=== PATIENT | male | born 1960 | race Caucasian/White ===

== ENCOUNTER 2016-05-14 19:48 | Outpatient (CLI) | payer BC ==
[~2016-05-14 19:48] MED LIST: ASPI-999 PO; ATOR20TA66 PO; PANT40TA3 PO; RAMI2.5C PO
--- OUTSIDE RECORDS SUMMARY | 2016-05-14 19:58 | XMS REPORT | Continuity of Care Document ---
Author Author [facility] Organization [facility] Address Unknown Phone Unavailable Care Team Providers Care Lockstitch Sleeve Maker Name Role Phone HAYDEE MORAES MD PCP Insurance Providers Payer Name Policy Number Subscriber Name Relationship [facility] [id number] Brigette Llanes Advance Directives Directive Response Recorded Date/Time Advance Directives No 01/21/16 5:25am Health Care Power of Waiter/Waitress [place] No 01/21/16 5:25am Organ Donor No 01/21/16 5:25am Problems Active Problems Medical Problem Onset Date Status Paroxysmal atrial fibrillation Unknown Acute Medications Current Home Medications Medication Dose Units Route Directions Days/Qty Instructions Start Date Ramipril 2.5 Mg 2.5 Mg Oral Daily 01/21/16 Atorvastatin Calcium 20 Mg 20 Mg Oral Daily 01/21/16 Pantoprazole Sodium 40 Mg 40 Mg Oral Daily 01/21/16 Aspirin 81 Mg 81 Mg Oral Daily 01/21/16 Social History Social History Problem Response Recorded Date/Time Recent Hopitalizations No 01/21/2016 5:25am Hospital Discharge Instructions No hospital discharge instructions. Plan of Care Discharge Date 03/20/16 6:25am Prescriptions See Medication Section Functional Status No functional status results. Allergies, Adverse Reactions, Alerts No known allergies. Immunizations No immunization records. Vital Signs No known vital signs results. Results No known relevant diagnostic tests, laboratory data and/or discharge summary. Procedures No known history of procedures. Encounters Encounter Location Arrival/Admit Date Discharge/Depart Date Attending Provider Departed Clinic [facility] 03/19/16 7:40pm 03/20/16 6: 25am Magy FREEMAN MD
== END 2016-05-15 06:10 | disposition home or self-care (01) ==
LOC: SLEEP 19:48
PROVIDERS: ATTEND Nurse Practitioner Family
DX: G47.33 Obstructive sleep apnea (adult) (pediatric) (principal); I48.91 Unspecified atrial fibrillation
CPT/HCPCS: 95811

== ENCOUNTER 2017-12-09 15:00 | Outpatient (RCR) | payer BC, OTHER ==
[~2017-12-09 15:00] MED LIST changes: -RAMI2.5C PO; +RAMI2.5C2 PO
== END 2017-12-30 | disposition home or self-care (01) ==
PROVIDERS: ATTEND Orthopaedic Surgery
DX: M23.612 Other spontaneous disruption of anterior cruciate ligament of left knee (principal)

== ENCOUNTER 2020-01-17 22:08 | Inpatient (IN) | payer BC, OTHER ==
[~2020-01-17] VITALS: Ht 167.7 cm; Wt 77.6 kg
[~2020-01-17 22:08] MED LIST changes: -PANT40TA3 PO; +PANT40TA52 PO
[2020-01-17] MEDS ORDERED: NS IV 1000 ML 1,000 ML IV SCH (23:15)
[2020-01-17 23:24] LABS: BASOPHILS % (AUTO) 0 % (0-10); EOSINOPHILS % (AUTO) 0 % (0-10); HEMATOCRIT 41 % (40-54); HEMOGLOBIN 13.6 g/dL (13.3-17.7); LYMPHOCYTES # (AUTO) 1.2 10^3/uL (1.0-4.0); LYMPHOCYTES % (AUTO) 12 % (12-44); MEAN CORPUSCULAR HEMOGLOBIN 29 pg (25-34); MEAN CORPUSCULAR HGB CONC 33 g/dL (32-36); MEAN CORPUSCULAR VOLUME 90 fL (80-99); MEAN PLATELET VOLUME 9.8 fL (9.0-12.2); MONOCYTES # (AUTO) 0.6 10^3/uL (0.0-1.0); MONOCYTES % (AUTO) 6 % (0-12); NEUTROPHILS # (AUTO) 8.3 10^3/uL (1.8-7.8); NEUTROPHILS % (AUTO) 81 % (42-75); PLATELET COUNT 291 10^3/uL (130-400); WHITE BLOOD COUNT 10.2 10^3/uL (4.3-11.0)
[2020-01-17 23:35] LABS: ALBUMIN 3.7 GM/DL (3.2-4.5); CHLORIDE 102 MMOL/L (98-107); POTASSIUM 4.1 MMOL/L (3.6-5.0); SODIUM 137 MMOL/L (135-145)
[2020-01-17 23:36] LABS: CALCIUM 9.6 MG/DL (8.5-10.1)
[2020-01-17 23:37] LABS: GLUCOSE 109 MG/DL (70-105)
[2020-01-17 23:38] LABS: TOTAL PROTEIN 8.3 GM/DL (6.4-8.2)
[2020-01-17 23:39] LABS: BILIRUBIN,TOTAL 1.1 MG/DL (0.1-1.0); CARBON DIOXIDE 19 MMOL/L (21-32)
[2020-01-17 23:41] LABS: ALKALINE PHOSPHATASE 66 U/L (40-136); CREATININE SERUM 1.56 MG/DL (0.60-1.30); FIBRIN DEGRADATION PRODUCTS 2.17 UG/ML (0.00-0.49); GFR ESTIMATED 46; INR 2.2 (0.8-1.4); PROTHROMBIN TIME PATIENT 24.8 SEC (12.2-14.7)
[2020-01-17 23:42] LABS: BUN/CREATININE RATIO 21
[2020-01-17 23:44] LABS: ALANINE AMINOTRANSFERASE 69 U/L (0-55); MAGNESIUM 2.2 MG/DL (1.6-2.4)
[2020-01-17 23:45] LABS: CREATINE KINASE 760 U/L (30-200)
[2020-01-17 23:47] LABS: ERYTHROCYTE SEDIMENTATION RATE 43 MM/HR (0-30)
--- NOTE | 2020-01-17 23:50 | ED Respiratory ---
General Chief Complaint: Respiratory Problems Stated Complaint: COVID +;LOW OXYGEN LEVELS Source: patient History of Present Illness Date Seen by Provider: Jan 17, 2020 Time Seen by Provider: 22:23 Initial Comments PT ARRIVES VIA POV FROM HOME STATES HE WAS SEEN AT [facility] 01/05/20 FOR "SINUS HEADACHE" AND WAS TESTED FOR COVID-19--CAME BACK POSITIVE. 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 HAS HISTORY OF MULTIPLE MYELOMA, DX IN 1996 AND HAD BONE MARROW TRANSPLANT 1997--CONSIDERED CURED. HAS NOT TAKEN ANYTHING FOR SYMPTOMS AT ANY TIME HAS NOT ATTEMPTED TO FOLLOW UP WITH ANYONE UNTIL TON. PCP: DR. MORAES IN [place] Allergies and Home Medications Allergies Coded Allergies: No Known Drug Allergies (Unverified , 01/21/16) Home Medications Aspirin 81 Mg Tab.chew, 81 MG PO DAILY, (Reported) Atorvastatin Calcium 20 Mg Tablet, 20 MG PO DAILY, (Reported) Pantoprazole Sodium 40 Mg Tablet.dr, 40 MG PO DAILY, (Reported) Ramipril 2.5 Mg Capsule, 2.5 MG PO DAILY, (Reported) Patient Home Medication List Home Medication List Reviewed: Yes Review of Systems Review of Systems Constitutional: see HPI, fever, malaise, weakness EENTM: no symptoms reported Respiratory: see HPI, cough, short of breath Cardiovascular: no symptoms reported; No chest pain Gastrointestinal: No abdominal pain, No diarrhea; loss of appetite; No nausea, No vomiting Genitourinary: no symptoms reported Musculoskeletal: no symptoms reported Skin: no symptoms reported Psychiatric/Neurological: See HPI, Headache Hematologic/Lymphatic: See HPI, Blood Clots Immunological/Allergic: see HPI Past Bkfvjbk-Ktzkax-Rimbob Hx Past Med/Social Hx: Reviewed and Corrections made Patient Social History Alcohol Use: Denies Use Recreational Drug Use: No Smoking Status: Never a Smoker Recent Hopitalizations: No Immunizations Up To Date Date of Pneumonia Vaccine: Dec 24, 2015 Date of Influenza Vaccine: Dec 24, 2015 Seasonal Allergies Seasonal Allergies: No Past Medical History Surgeries: Yes (BONE MARROW TRANSPLANT;VENA CAVA FILTER;) Pituitary, Vascular Surgery Respiratory: Yes (PNEUMONIA WHEN YOUNG) Pneumonia Cardiac: Yes (LEFT LEG DVT X 3; PAROXYSMAL A FIB) Atrial Fibrillation, Coronary Artery Disease, Deep Vein Thrombosis, Heart Attack, High Cholesterol, Hypertension Neurological: No Reproductive Disorders: No Genitourinary: No Gastrointestinal: Yes Abdominal Hernia, Gastroesophageal Reflux, Hiatal Hernia Musculoskeletal: No Endocrine: Yes (PITUITARY REMOVED) Pituitary Disease HEENT: No Cancer: Yes (MULTIPLE MYELOMA DX 1996; BONE MARROW TRANSPLANT 1997) Did You Recieve Any Treatments: Yes What Type of Treatment Did You: Other Psychosocial: No Integumentary: No Blood Disorders: No Family Medical History No Pertinent Family Hx Physical Exam Vital Signs - First Documented 01/17/20 22:35 Temp 36.8 Pulse 80 Resp 22 B/P (MAP) 135/89 (104) O2 Delivery Nasal Cannula O2 Flow Rate 3.00 Capillary Refill : Height: 5'8" Weight: 184lbs. oz. 83.059080mu; BMI Method:Stated General Appearance: WD/WN, other (MILDLY DYSPNEIC, BUT TALKS AT LENGTH ) HEENT: PERRL/EOMI, other (ORAL MUCOSA MOIST) Neck: normal inspection Respiratory: no accessory muscle use, decreased breath sounds (IN BASES), other (MILDLY DYSPNEIC) Cardiovascular: normal peripheral pulses, no edema, no gallop, no JVD, no murmur, tachycardia (MILD 100-110) Gastrointestinal: normal bowel sounds, non tender, soft, no organomegaly Extremities: normal range of motion, non-tender, normal inspection, no pedal edema, no calf tenderness, normal capillary refill Neurologic/Psychiatric: it technician II-XII nml as tested, no motor/sensory deficits, alert, normal mood/affect, oriented x 3 Skin: normal color, warm/dry; No rash Focused Exam Lactate Level 01/17/20 23:10: Lactic Acid Level 2.24*H Lactic Acid Level Laboratory Tests Test 01/17/20 23:10 Lactic Acid Level 2.24 MMOL/L (0.50-2.00) *H Progress/Results/Core Measures Suspected Sepsis SIRS Temperature: Pulse: Respiratory Rate: Laboratory Tests 01/17/20 23:10: White Blood Count 10.2 Blood Pressure / Mean: 01/17/20 23:10: Lactic Acid Level 2.24*H Laboratory Tests 01/17/20 23:10: Creatinine 1.56H, INR Comment 2.2H, Platelet Count 291, Total Bilirubin 1.1H Results/Orders Lab Results Laboratory Tests Test 01/17/20 00:50 01/17/20 23:10 Range/Units Blood Gas Puncture Site RIGHT RADIAL Blood Gas Patient Temperature 98.1 Arterial Blood pH 7.38 7.37-7.43 Arterial Blood Partial Pressure CO2 31 L 35-45 MMHG Arterial Blood Partial Pressure O2 85 79-93 MMHG Arterial Blood HCO3 18 L 23-27 MMOL/L Arterial Blood Total CO2 18.6 L 21.0-31.0 MMOL/L Arterial Blood Oxygen Saturation 96 94-100 % Arterial Blood Base Excess -6.6 L -2.5-2.5 MMOL/L Aramis Test YES-POS Blood Gas Ventilator Setting NO Blood Gas Inspired Oxygen 3L White Blood Count 10.2 4.3-11.0 10^3/uL Red Blood Count 4.62 4.30-5.52 10^6/uL Hemoglobin 13.6 13.3-17.7 g/dL Hematocrit 41 40-54 % Mean Corpuscular Volume 90 80-99 fL Mean Corpuscular Hemoglobin 29 25-34 pg Mean Corpuscular Hemoglobin Concent 33 32-36 g/dL Red Cell Distribution Width 15.9 H 10.0-14.5 % Platelet Count 291 130-400 10^3/uL Mean Platelet Volume 9.8 9.0-12.2 fL Immature Granulocyte % (Auto) 0 % Neutrophils (%) (Auto) 81 H 42-75 % Lymphocytes (%) (Auto) 12 12-44 % Monocytes (%) (Auto) 6 0-12 % Eosinophils (%) (Auto) 0 0-10 % Basophils (%) (Auto) 0 0-10 % Neutrophils # (Auto) 8.3 H 1.8-7.8 10^3/uL Lymphocytes # (Auto) 1.2 1.0-4.0 10^3/uL Monocytes # (Auto) 0.6 0.0-1.0 10^3/uL Eosinophils # (Auto) 0.0 0.0-0.3 10^3/uL Basophils # (Auto) 0.0 0.0-0.1 10^3/uL Immature Granulocyte # (Auto) 0.0 0.0-0.1 10^3/uL Erythrocyte Sedimentation Rate 43 H 0-30 MM/HR Prothrombin Time 24.8 H 12.2-14.7 SEC INR Comment 2.2 H 0.8-1.4 Activated Partial Thromboplast Time 60 H 24-35 SEC D-Dimer 2.17 H 0.00-0.49 UG/ML Sodium Level 137 135-145 MMOL/L Potassium Level 4.1 3.6-5.0 MMOL/L Chloride Level 102 98-107 MMOL/L Carbon Dioxide Level 19 L 21-32 MMOL/L Anion Gap 16 H 5-14 MMOL/L Blood Urea Nitrogen 32 H 7-18 MG/DL Creatinine 1.56 H 0.60-1.30 MG/DL Estimat Glomerular Filtration Rate 46 BUN/Creatinine Ratio 21 Glucose Level 109 H 70-105 MG/DL Lactic Acid Level 2.24 *H 0.50-2.00 MMOL/L Calcium Level 9.6 8.5-10.1 MG/DL Corrected Calcium 9.8 8.5-10.1 MG/DL Magnesium Level 2.2 1.6-2.4 MG/DL Total Bilirubin 1.1 H 0.1-1.0 MG/DL Aspartate Amino Transf (AST/SGOT) 58 H 5-34 U/L Alanine Aminotransferase (ALT/SGPT) 69 H 0-55 U/L Alkaline Phosphatase 66 40-136 U/L Total Creatine Kinase 760 H 30-200 U/L Creatine Kinase MB 1.2 <6.6 NG/ML Myoglobin 294.3 H 10.0-92.0 NG/ML Troponin I < 0.028 <0.028 NG/ML C-Reactive Protein High Sensitivity 23.19 H 0.00-0.50 MG/DL B-Type Natriuretic Peptide 12.2 <100.0 PG/ML Total Protein 8.3 H 6.4-8.2 GM/DL Albumin 3.7 3.2-4.5 GM/DL Procalcitonin 0.36 H <0.10 NG/ML My Orders Orders - CAMMY,KATHY K DO Ed Iv/Invasive Line Start (01/17/20 22:24) Ekg Tracing (01/17/20 22:24) O2 (01/17/20:24) Monitor-Rhythm Ecg Trace Only (01/17/20:24) Chest 1 View, Ap/Pa Only (01/17/20 22:24) Arterial Blood Gas (01/17/20:24) BNP (01/17/20:24) Cbc With Automated Diff (01/17/20:24) Comprehensive Metabolic Panel (01/17/20:24) Creatine Kinase (01/17/20:24) Creatine Kinase Mb (01/17/20:24) Hs C Reactive Protein (01/17/20:) Fibrin Degradation Products (01/17/20:24) Lactic Acid Analyzer (01/17/20:24) Magnesium (01/17/20:24) Procalcitonin (Pct) (01/17/20:24) Protime With Inr (01/17/20:24) Partial Thromboplastin Time (01/17/20:24) Ua Culture If Indicated (01/17/20:24) Blood Culture (01/17/20:24) Erythrocyte Sedimentation Rate (01/17/20:24) Myoglobin Serum (01/17/20 22:24) Troponin I (01/17/20 22:24) Ed Iv/Invasive Line Start (01/17/20 23:15) Ns Iv 1000 Ml (Sodium Chloride 0.9%) (01/17/20 23:15) Covid-19 External Lab Results (01/17/20 23:53) Isolation Central Supply Req (01/17/20 23:53) Arterial Blood Gas (01/17/20 00:50) Vital Signs/I&O 01/17/20 01/17/20 22:35 22:35 Temp 36.8 Pulse 80 Resp 22 B/P (MAP) 135/89 (104) O2 Delivery Nasal Cannula Room Air O2 Flow Rate 3.00 Capillary Refill : Progress Note : Progress Note PLACED IN ISOLATION ROOM, PPE WORN AT ALL TIMES INITIAL O2 SATS IN MID 80'S --PLACED ON O2 AT 3L/NC--UP TO 98% NO DETERIORATION IN PT'S CONDITION DURING ER STAY CREATININE AND GFR ELEVATED AT THIS TIME, SO UNABLE TO DO CT CHEST ANGIOGRAM AT THIS TIME. WILL TREAT WITH LOVENOX, PT HAS NOT TAKEN HIS XARELTO FOR A FEW DAYS. GIVEN ANTIBIOTICS AND DEXAMETHASONE WELL ECG Initial ECG Impression Date: Jan 17, 2020 Initial ECG Impression Time: 23:04 Initial ECG Rate: 93 Initial ECG Rhythm: Normal Sinus Comment INFERIOR Q WAVES Diagnostic Imaging Comments CXR--BILATERAL INFILTRATES, PENDING RADIOLOGIST REVIEW Departure Communication (Admissions) 0004--SPOKE WITH DR. BAR, HOSPITALIST, ACCEPTS PT FOR ADMIT. ORDERS NOTED. Impression Primary Impression: Pneumonia due to COVID-19 virus Additional Impressions: Hypoxia History of recurrent deep vein thrombosis (DVT) HX OF PAROXYSMAL ATRIAL FIBRILLATION Hx of multiple myeloma S/P bone marrow transplant DEHYDRATION WITH RENAL INSUFFIENCY Disposition: ADMITTED INPATIENT Condition: Improved Admissions Decision to Admit Reason: Admit from ER (General) Decision to Admit/Date: Jan 18, 2020 Time/Decision to Admit Time: 00:05 Departure-Patient Inst. Referrals: BHAVNA VAZQUEZ MD (PCP) Primary Care Physician KATHY CHAWLA DO Jan 17, 2020 23:50
[2020-01-17 23:52] LABS: CREATINE KINASE MB 1.2 NG/ML (<6.6)
[2020-01-18] VITALS (17 sets, daily range): BP systolic 101–140; BP diastolic 55–95
[2020-01-18 00:03] LABS: ABG BASE EXCESS -6.6 MMOL/L (-2.5-2.5); ABG OXYGEN SATURATION 96 % (94-100); ABG PCO2 31 MMHG (35-45); ABG PH 7.38 (7.37-7.43); ABG PO2 85 MMHG (79-93); ABG TCO2 18.6 MMOL/L (21.0-31.0); ALLENS TEST YES-POS; INSPIRED O2 3L; PATIENT TEMP 98.1; VENTILATOR NO
[2020-01-18] MEDS ORDERED: CEFEPIME INJECTION 2,000 MG in WATER (STERILE) FOR INJECTION 20 ML IV ONE (00:15)
[2020-01-18] MEDS ORDERED: ENOXAPARIN 100 MG/1 ML (LOVENOX) SYR SC ONE (00:15)
[2020-01-18] MEDS ORDERED: VANCOMYCIN INJECTION 1,000 MG in NS (IVPB) 250 ML IV ONE (00:15)
[2020-01-18] MEDS ORDERED: NS IV 1000 ML 1,000 ML IV SCH (00:32)
[2020-01-18] MEDS ORDERED: VANCOMYCIN INJECTION 750 MG in NS (IVPB) 250 ML IV ONE (01:15)
[2020-01-18] MEDS ORDERED: D5 1/2 NS W/KCL 20 MEQ/L 1,000 ML IV ONE (01:52)
[2020-01-18] MEDS ORDERED: NS (IVPB) 250 ML ONE (01:54)
[2020-01-18] MEDS ORDERED: AZITHROMYCIN INJECTION 500 MG/5 ML VIAL ONE (01:54)
[2020-01-18] MEDS ORDERED: ACETAMINOPHEN 500 MG TAB (TYLENOL) PO PRN (02:15)
[2020-01-18] MEDS: D5 1/2 NS W/KCL 20 MEQ/L 1,000 ML IV SCH ×4 (02:42→22:56)
[2020-01-18] MEDS: AZITHROMYCIN 500 MG/NS 250 ML IVPB IV SCH ×2 (02:42)
[2020-01-18] MEDS ORDERED: RT-ALBUTEROL INHALER HFA (VENTOLIN HFA) 18 GM IH PRN (02:45)
[2020-01-18 03:08] LABS: BASOPHILS % (AUTO) 0 % (0-10); EOSINOPHILS # (AUTO) 0.1 10^3/uL (0.0-0.3); EOSINOPHILS % (AUTO) 1 % (0-10); HEMATOCRIT 37 % (40-54); HEMOGLOBIN 11.4 g/dL (13.3-17.7); LYMPHOCYTES # (AUTO) 1.3 10^3/uL (1.0-4.0); LYMPHOCYTES % (AUTO) 13 % (12-44); MEAN CORPUSCULAR HEMOGLOBIN 29 pg (25-34); MEAN CORPUSCULAR HGB CONC 31 g/dL (32-36); MEAN CORPUSCULAR VOLUME 93 fL (80-99); MEAN PLATELET VOLUME 10.2 fL (9.0-12.2); MONOCYTES # (AUTO) 0.7 10^3/uL (0.0-1.0); MONOCYTES % (AUTO) 8 % (0-12); NEUTROPHILS # (AUTO) 7.6 10^3/uL (1.8-7.8); NEUTROPHILS % (AUTO) 78 % (42-75); PLATELET COUNT 242 10^3/uL (130-400); WHITE BLOOD COUNT 9.7 10^3/uL (4.3-11.0)
[2020-01-18 03:12] LABS: POTASSIUM 4.3 MMOL/L (3.6-5.0)
[2020-01-18 03:13] LABS: CALCIUM 8.2 MG/DL (8.5-10.1)
[2020-01-18 03:15] LABS: TOTAL PROTEIN 6.7 GM/DL (6.4-8.2)
[2020-01-18 03:16] LABS: BILIRUBIN,TOTAL 0.8 MG/DL (0.1-1.0)
[2020-01-18 03:18] LABS: CREATININE SERUM 1.35 MG/DL (0.60-1.30); PHOSPHORUS 2.9 MG/DL (2.3-4.7)
[2020-01-18 03:21] LABS: MAGNESIUM 1.9 MG/DL (1.6-2.4)
--- NOTE | 2020-01-18 04:42 | Pulmonary Consultation ---
History of Present Illness History of Present Illness Date Seen by Provider: Jan 18, 2020 Time Seen by Provider: 04:37 Date of Admission Allergies and Home Medications Allergies Coded Allergies: No Known Drug Allergies (Unverified , 01/21/16) Home Medications Atorvastatin Calcium 20 Mg Tablet, 20 MG PO DAILY, (Reported) Cholecalciferol (Vitamin D3) 125 Mcg Tablet, 125 MCG PO DAILY, (Reported) Pantoprazole Sodium 40 Mg Tablet.dr, 40 MG PO DAILY, (Reported) Ramipril 2.5 Mg Capsule, 2.5 MG PO DAILY, (Reported) Rivaroxaban 20 Mg Tablet, 20 MG PO DAILY, (Reported) Past Dlkjmoe-Hnopfj-Epirmz Hx Past Med/Social Hx: Reviewed and Corrections made Patient Social History Alcohol Use: Denies Use Recreational Drug Use: No Smoking Status: Never a Smoker Recent Foreign Travel: No Contact w/Someone Who Travel: No Recent Infectious Disease Expo: No Recent Hopitalizations: No Physical Abuse: No Sexual Abuse: No Mistreated: No Fear: No Immunizations Up To Date Date of Pneumonia Vaccine: Apr 13, 2017 Date of Influenza Vaccine: Dec 24, 2015 Seasonal Allergies Seasonal Allergies: No Past Medical History Surgeries: Yes (BONE MARROW TRANSPLANT;VENA CAVA FILTER;) Pituitary, Vascular Surgery Respiratory: Yes (PNEUMONIA WHEN YOUNG) Pneumonia Cardiac: Yes (LEFT LEG DVT X 3; PAROXYSMAL A FIB) Atrial Fibrillation, Coronary Artery Disease, Deep Vein Thrombosis, Heart Attack, High Cholesterol, Hypertension Neurological: No Reproductive Disorders: No Genitourinary: No Gastrointestinal: Yes Abdominal Hernia, Gastroesophageal Reflux, Hiatal Hernia Musculoskeletal: No Endocrine: Yes (PITUITARY REMOVED) Pituitary Disease HEENT: No Cancer: Yes (MULTIPLE MYELOMA DX 1996; BONE MARROW TRANSPLANT 1997) Did You Recieve Any Treatments: Yes What Type of Treatment Did You: Other Psychosocial: No Integumentary: No Blood Disorders: No Family Medical History No Pertinent Family Hx Review of Systems Time Seen by Provider: 06:33 Sepsis Event Evaluation Height, Weight, BMI Height: 5'8" Weight: 184lbs. oz. 83.619148rt; 29.00 BMI Method:Stated Exam Exam Vital Signs Date Time Temp Pulse Resp B/P (MAP) Pulse Ox O2 Delivery O2 Flow Rate FiO2 01/18/20 04:00 95 High Flow N/C 12.00 01/18/20 02:43 High Flow N/C 15.00 01/18/20 02:30 83 95 01/18/20 02:19 36.1 83 34 139/81 (100) 94 Non Rebreather 15.00 01/18/20 01:38 36.8 75 16 125/75 (104) 95 Nasal Cannula 3.00 01/17/20 22:35 36.8 80 22 135/89 (104) Room Air 01/17/20 22:35 Nasal Cannula 3.00 I & O 01/18/20 07:00 Intake Total 2520 ml Balance 2520 ml Height & Weight Height: 5'8" Weight: 184lbs. oz. 83.649215xj; 29.00 BMI Method:Stated General Appearance: No Apparent Distress, WD/WN HEENT: PERRL/EOMI, Normal ENT Inspection, Pharynx Normal Capillary Refill: Less Than 3 Seconds Gastrointestinal: normal bowel sounds, non tender, soft, no organomegaly Results Lab Laboratory Tests 01/17/20 23:10 01/18/20 01:25 Assessment/Plan Assessment/Plan Acute COVID 19 Pneumonia -Start Vapotherm -BiPAP HS and PRN -Dx 01/04 - 14 days from dx to admission -Pt is outside of window for Remdisiever -Give Convalescent plasma -Start Decadron Acute secondary PNA -Check urine legionella and strep ag -MRSA swab -Check Influenza -Continue Cefepime and azithromycin -Kay cultures -Currently IVF are at 150 with D5NS Hyperkalemia with worsening renal failure -Give a liter bolus of NS over 2hrs -give 1amp of bicarb Metabolic lactic acidosis -Resolved with IVF Hx of DEISY -Uses CPAP with 2 liters of oxygen at home DVT/GI ppx -Theraputic dose Lovenox and protonix -Pt has hx of DVT with venacava filter. GEOFF CURRIE DO Jan 18, 2020 04:42
[2020-01-18] MEDS: CEFEPIME 1,000 MG/SWFI 10 ML IV PUSH IV SCH ×8 (06:46→22:55)
[2020-01-18] MEDS ORDERED: FLU QUADRIvalent (3YOA+) 60 mcg/0.5 ml 2020-21 (AFLURIA) IM ONE (07:00)
--- NOTE | 2020-01-18 07:38 | Diagnostic Imaging Report ---
INDICATION: Dyspnea. Comparison with 01/21/2016. FINDING: Consolidated bilateral lower lobe alveolar infiltrates have developed. Small pleural effusion. Heart is upper limits of normal. The upper lungs are clear with no evidence of pulmonary edema. No bony abnormalities. IMPRESSION: Findings are consistent with consolidated pneumonia developing in the lower lobes bilaterally. Dictated by: Dictated on workstation # [id number]
[2020-01-18 08:19] LABS: BILIRUBIN,URINE NEGATIVE (NEGATIVE); CLARITY,URINE SL CLOUDY; COLOR,URINE YELLOW; GLUCOSE, URINE (UA) NEGATIVE (NEGATIVE); KETONES,URINE NEGATIVE (NEGATIVE); LEUKOCYTE ESTERASE ,URINE NEGATIVE (NEGATIVE); NITRITE,URINE NEGATIVE (NEGATIVE); PROTEIN,URINE TRACE (NEGATIVE)
[2020-01-18 08:38] LABS: BACTERIA,URINE TRACE /HPF; GRANULAR CASTS,URINE 0-2 /LPF; RBC,URINE 0-2 /HPF; WBC,URINE 0-2 /HPF
[2020-01-18] MEDS: dexAMETHasone 6 MG TAB (DECADRON) PO SCH (09:11)
[2020-01-18] MEDS: PANTOPRAZOLE 40 MG (PROTONIX) VIAL IV SCH (09:11)
[2020-01-18] MEDS: RT-ALBUTEROL INHALER HFA (VENTOLIN HFA) 18 GM IH SCH ×4 (10:29→21:05)
--- NOTE | 2020-01-18 10:41 | History & Physical-Hospitalist ---
History of Present Illness HPI/Chief Complaint patient is a 59-year-old male past medical history of hypertension hyperlipidemia who presented to the emergency department due to shortness of breath. He states he was exposed to COVID at work and subsequently was tested but was asymptomatic. He was found to be positive for COVID on 924. Roughly one week later he developed symptoms on 01/10. he was quite hypoxic and required a nonrebreather to maintain oxygen saturations. He is been admitted to the ICU. This morning he states that he is feeling better. He did have some nausea overnight but denies any vomiting, loss of taste or smell, or diarrhea. Source: patient Date Seen 01/18/20 Time Seen by a Provider: 10:31 Attending Physician Bibi Bueno MD PCP No,Local Physician Referring Physician Date of Admission Jan 18, 2020 at 00:05 Home Medications & Allergies Home Medications Reviewed patient Home Medication Reconciliation performed by pharmacy medication reconciliations generation technician and/or nursing. Patients Allergies have been reviewed. Allergies Allergies Coded Allergies No Known Drug Allergies (Bptrwbsnlp41/10/16) Past Ibjubhe-Btgbgq-Fodhgz Hx Past Med/Social Hx: Reviewed and Corrections made Patient Social History Alcohol Use: Denies Use Recreational Drug Use: No Smoking Status: Never a Smoker Recent Foreign Travel: No Contact w/other who traveled: No Recent Hopitalizations: No Recent Infectious Disease Expo: No Immunizations Up To Date Date of Pneumonia Vaccine: Apr 13, 2017 Date of Influenza Vaccine: Dec 24, 2015 Seasonal Allergies Seasonal Allergies: No Past Medical History Surgeries: Pituitary, Vascular Surgery Cardiac: Atrial Fibrillation, Coronary Artery Disease, Deep Vein Thrombosis, Heart Attack, High Cholesterol, Hypertension Reproductive: No Gastrointestinal: Abdominal Hernia, Gastroesophageal Reflux, Hiatal Hernia Endocrine: Pituitary Disease Did You Recieve Any Treatments: Yes What Type of Treatment Did You: Other History of Blood Disorders: No Family History No Pertinent Family Hx Review of Systems Constitutional: fever, malaise EENTM: no symptoms reported Respiratory: cough; No phlegm; short of breath Cardiovascular: No chest pain; edema (chronic); No palpitations Gastrointestinal: No abdominal pain, No diarrhea; nausea; No vomiting Genitourinary: No decreased output, No dysuria Musculoskeletal: no symptoms reported Skin: no symptoms reported Psychiatric/Neurological: No Symptoms Reported Physical Exam Physical Exam Vital Signs Vital Signs - First Documented 10/09/3001/18/20 01/18/20 22:35 01:38 12:00 Temp 36.8 Pulse 80 Resp 22 B/P (MAP) 135/89 (104) Pulse Ox 95 O2 Delivery Nasal Cannula O2 Flow Rate 3.00 FiO2 85 Capillary Refill : Greater Than 3 Seconds Height, Weight, BMI Height: 5'8" Weight: 184lbs. oz. 83.886646uh; 29.00 BMI Method:Stated General Appearance: No Apparent Distress, WD/WN HEENT: PERRL/EOMI, Moist Mucous Membranes; No Scleral Icterus (L), No Scleral Icterus (R) Neck: Normal Inspection, Supple Respiratory: Decreased Breath Sounds (bases); No Rhonci, No Wheezing; Other (on 12lpm HFNC) Cardiovascular: Regular Rate, Rhythm, No JVD, No Murmur, Normal Peripheral Pulses Gastrointestinal: Normal Bowel Sounds, Non Tender, Soft Extremity: No Calf Tenderness, No Pedal Edema; No Swelling Neurologic/Psychiatric: Alert, Oriented x3, Normal Mood/Affect Skin: Normal Color, Warm/Dry Results Results/Procedures Labs Laboratory Tests 01/17/20 23:10 01/18/20 01:25 Patient resulted labs reviewed. Imaging: Reviewed Imaging Report Imaging [facility] [place] NAME: THIEN LLANES [facility] REC#: [id number] PT STATUS: ADM IN : 1960 PHYSICIAN: KATHY CHAWLA DO ADMIT DATE: 01/18/20/ICU Signed Date of Exam:01/17/20 CHEST 1 VIEW, AP/PA ONLY INDICATION: Dyspnea. Comparison with 01/21/2016. FINDING: Consolidated bilateral lower lobe alveolar infiltrates have developed. Small pleural effusion. Heart is upper limits of normal. The upper lungs are clear with no evidence of pulmonary edema. No bony abnormalities. IMPRESSION: Findings are consistent with consolidated pneumonia developing in the lower lobes bilaterally. Dictated by: Dictated on workstation # [id number] Dict: 01/18/20 0723 Trans: 01/18/20 1007 [facility] [id number] Interpreted by: MARIAN RICHARDS MD Electronically signed by: MARIAN RICHARDS MD 01/18/20 1007 Assessment/Plan Admission Diagnosis Acute hypoxic respiratory failure due to COVID19 Admission Status: Inpatient Order (span 2 midnights) Reason for Inpatient Admission: see below Assessment and Plan Acute hypoxic respiratory failure COVID19 Bilateral Pneumonia Outside of window for Remdesivir as diagnosed on 01/04 Convalescent plasma ordered per Dr Diandra Penaloza ordered Continue Vanc. Cefepime, and Azithro Hope to deescalate tomorrow MAT protocol Lovenox therapuetic dosing for now Plan to switch to vapotherm HTN HLD BP well controlled, trend for now Diagnosis/Problems Diagnosis/Problems (1) Acute respiratory failure Status: Acute Qualifiers: Respiratory failure complication: hypoxia Qualified Codes: J96.01 - Acute respiratory failure with hypoxia (2) Pneumonia due to COVID-19 virus Status: Acute (3) History of recurrent deep vein thrombosis (DVT) Status: Acute (4) Paroxysmal atrial fibrillation Status: Acute (5) S/P bone marrow transplant Status: Acute (6) Hx of multiple myeloma Status: Acute (7) Chronic anticoagulation Clinical Quality Measures DVT/VTE Risk/Contraindication: Risk Factor Score Per Nursin RFS Level Per Nursing on Admit: 4+=Very High YANG CARMEN MD Jan 18, 2020 10:41
[2020-01-18] MEDS ORDERED: CALC-250 PO (10:58)
[2020-01-18] MEDS ORDERED: RIVA20TA2 PO (10:58)
--- NOTE | 2020-01-18 10:58 | NUR ---
I WAS UNABLE TO SPEAK WIT THE PT AT THIS TIME, I DID CALL PT'S SANDRA AND WENT THRU THE EXT MED HISTORY TO COMPLETE THE MED REC SANDRA WAS ABLE TO NAME ALL THE PTS MEDICATIONS WELL WHEN/HOW HE TAKES EACH ON 01-05-2020 PT FILLED DEXAMETHASONE 6MG #10/10DS AND DOXYCYCLINE 100MG #20/10DS BUT ACCORDING TO SANDRA THE PT HAS COMPLETED BOTH THESE THERAPIES OTC MEDS; VIT D
[2020-01-18] MEDS: ENOXAPARIN 100 MG/1 ML (LOVENOX) SYR SC SCH ×2 (12:06→22:55)
[2020-01-18] MEDS: VANCOMYCIN 1250 MG/NS 250 ML IVPB IV SCH ×4 (13:30→22:56)
[2020-01-18] MEDS ORDERED: VANCOMYCIN INJECTION 1,750 MG in NS IV 500 ML 500 ML IV SCH (20:00)
[2020-01-19] VITALS (18 sets, daily range): BP systolic 92–144; BP diastolic 49–83
[2020-01-19] MEDS: AZITHROMYCIN 500 MG/NS 250 ML IVPB IV SCH ×2 (02:53)
[2020-01-19] MEDS ORDERED: ONDANSETRON 4 MG/2 ML (SDV) Z0FRAN ONE (03:48)
[2020-01-19] MEDS: ONDANSETRON 4 MG/2 ML (SDV) Z0FRAN IVP PRN (03:53)
[2020-01-19] MEDS: CEFEPIME 1,000 MG/SWFI 10 ML IV PUSH IV SCH ×8 (04:03→23:24)
[2020-01-19] MEDS: D5 1/2 NS W/KCL 20 MEQ/L 1,000 ML IV SCH (04:24)
[2020-01-19 05:06] LABS: BASOPHILS % (AUTO) 0 % (0-10); EOSINOPHILS % (AUTO) 0 % (0-10); HEMATOCRIT 36 % (40-54); HEMOGLOBIN 11.4 g/dL (13.3-17.7); LYMPHOCYTES # (AUTO) 0.5 10^3/uL (1.0-4.0); LYMPHOCYTES % (AUTO) 4 % (12-44); MEAN CORPUSCULAR HEMOGLOBIN 29 pg (25-34); MEAN CORPUSCULAR HGB CONC 32 g/dL (32-36); MEAN CORPUSCULAR VOLUME 91 fL (80-99); MEAN PLATELET VOLUME 10.4 fL (9.0-12.2); MONOCYTES # (AUTO) 0.7 10^3/uL (0.0-1.0); MONOCYTES % (AUTO) 6 % (0-12); NEUTROPHILS % (AUTO) 90 % (42-75); PLATELET COUNT 293 10^3/uL (130-400); WHITE BLOOD COUNT 12.2 10^3/uL (4.3-11.0)
[2020-01-19 05:17] LABS: CHLORIDE 113 MMOL/L (98-107); POTASSIUM 4.8 MMOL/L (3.6-5.0); SODIUM 140 MMOL/L (135-145)
[2020-01-19 05:18] LABS: CALCIUM 8.4 MG/DL (8.5-10.1)
[2020-01-19 05:19] LABS: GLUCOSE 169 MG/DL (70-105)
[2020-01-19 05:20] LABS: CARBON DIOXIDE 16 MMOL/L (21-32)
[2020-01-19 05:22] LABS: PHOSPHORUS 2.4 MG/DL (2.3-4.7)
[2020-01-19 05:23] LABS: CREATININE SERUM 1.17 MG/DL (0.60-1.30); GFR ESTIMATED > 60
[2020-01-19 05:24] LABS: BUN/CREATININE RATIO 20
[2020-01-19 05:58] LABS: ATYPICAL LYMPHOCYTES 1 %; BAND NEUTROPHILS 1 %; BURR CELLS MODERATE; LYMPHOCYTES % (MANUAL) 2 %; MONOCYTES % (MANUAL) 4 %; NEUTROPHILS % (MANUAL) 92 %
[2020-01-19] MEDS: RT-ALBUTEROL INHALER HFA (VENTOLIN HFA) 18 GM IH SCH ×4 (07:32→19:26)
[2020-01-19] MEDS: dexAMETHasone 6 MG TAB (DECADRON) PO SCH (09:26)
[2020-01-19] MEDS: PANTOPRAZOLE 40 MG (PROTONIX) VIAL IV SCH (09:26)
--- NOTE | 2020-01-19 09:48 | Progress Note - Hospitalist ---
Subjective HPI/CC On Admission Date Seen by Provider: Jan 19, 2020 Time Seen by Provider: 09:41 patient is a 59-year-old male past medical history of hypertension hyperlipidemia who presented to the emergency department due to shortness of breath. He states he was exposed to COVID at work and subsequently was tested but was asymptomatic. He was found to be positive for COVID on . Roughly one week later he developed symptoms on 01/10. he was quite hypoxic and required a nonrebreather to maintain oxygen saturations. He is been admitted to the ICU. This morning he states that he is feeling better. He did have some nausea overnight but denies any vomiting, loss of taste or smell, or diarrhea. Subjective/Events-last exam Pt reports persistent SOB. Did not tolerate BiPAP overnight. On Vapotherm. Discussed Remdesvir and questionable candidacy for it given difference between diagnosis and symptom onset. He declined as he thinks it would be "pointless." Focused Exam Lactate Level 01/17/20 23:10: Lactic Acid Level 2.24*H 01/18/20 01:25: Lactic Acid Level 0.99 Objective Exam Vital Signs Vital Signs Date Time Temp Pulse Resp B/P (MAP) Pulse Ox O2 Delivery O2 Flow Rate FiO2 01/19/20 09:00 64 92/49 (63) 94 Vapotherm 35.00 90.00 01/19/20 07:35 90 01/19/20 06:00 23 01/19/20 02:57 35.8 Capillary Refill : Greater Than 3 Seconds General Appearance: No Apparent Distress, WD/WN Respiratory: No Accessory Muscle Use, Rhonci, Other (on Vapotherm) Cardiovascular: Regular Rate, Rhythm, No Murmur Gastrointestinal: Normal Bowel Sounds, Non Tender, Soft Neurologic/Psychiatric: Alert, Oriented x3 Results/Procedures Lab Laboratory Tests 01/19/20 04:35 Patient resulted labs reviewed. Imaging: Reviewed Imaging Report Assessment/Plan Assessment and Plan Assess & Plan/Chief Complaint Acute hypoxic respiratory failure COVID19 Bilateral Pneumonia Outside of window for Remdesivir as diagnosed on 01/04 and patient declines Convalescent plasma ordered and pending Decadron Continue Cefepime, and Azithro, MRSA negative DC Vanc MAT protocol Lovenox therapuetic dosing for now Continue Vapotherm HTN HLD BP well controlled, trend for now History of recurrent VTE Continue home anticoagulation DVT ppx: Lovenox Diagnosis/Problems Diagnosis/Problems (1) Acute respiratory failure Status: Acute Qualifiers: Respiratory failure complication: hypoxia Qualified Codes: J96.01 - Acute respiratory failure with hypoxia (2) Pneumonia due to COVID-19 virus Status: Acute (3) History of recurrent deep vein thrombosis (DVT) Status: Acute (4) Paroxysmal atrial fibrillation Status: Acute (5) S/P bone marrow transplant Status: Acute (6) Hx of multiple myeloma Status: Acute (7) Chronic anticoagulation Clinical Quality Measures DVT/VTE Risk/Contraindication: Risk Factor Score Per Nursin RFS Level Per Nursing on Admit: 4+=Very High YANG CARMEN MD Jan 19, 2020 09:48
[2020-01-19] MEDS ORDERED: FUROSEMIDE 40 MG/4 ML INJ (LASIX) IVP NR (12:45)
[2020-01-19] MEDS: RIVAROXABAN 20 MG TABLET (XARELTO) PO SCH (13:30)
[2020-01-19] MEDS ORDERED: ALPRAZolam 0.5 MG (XANAX) TAB PO PRN (19:30)
[2020-01-19] MEDS ORDERED: LACTATED RINGERS 1,000 ML IV ONE (19:31)
[2020-01-19] MEDS ORDERED: NS IV 500 ML 500 ML ONE (19:48)
[2020-01-19] MEDS: LACTATED RINGERS 1,000 ML IV SCH ×2 (22:24→23:24)
[2020-01-19] MEDS ORDERED: NS IV 500 ML 500 ML IV ONE (22:30)
[2020-01-20] VITALS (29 sets, daily range): BP systolic 119–158; BP diastolic 70–99
[2020-01-20] MEDS: AZITHROMYCIN 500 MG/NS 250 ML IVPB IV SCH ×2 (01:52)
[2020-01-20] MEDS: CEFEPIME 1,000 MG/SWFI 10 ML IV PUSH IV SCH ×6 (05:37→18:30)
[2020-01-20 05:58] LABS: BASOPHILS % (AUTO) 0 % (0-10); EOSINOPHILS % (AUTO) 0 % (0-10); HEMATOCRIT 31 % (40-54); HEMOGLOBIN 10.5 g/dL (13.3-17.7); LYMPHOCYTES # (AUTO) 0.5 10^3/uL (1.0-4.0); LYMPHOCYTES % (AUTO) 4 % (12-44); MEAN CORPUSCULAR HEMOGLOBIN 29 pg (25-34); MEAN CORPUSCULAR HGB CONC 33 g/dL (32-36); MEAN CORPUSCULAR VOLUME 88 fL (80-99); MEAN PLATELET VOLUME 10.5 fL (9.0-12.2); MONOCYTES # (AUTO) 0.6 10^3/uL (0.0-1.0); MONOCYTES % (AUTO) 4 % (0-12); NEUTROPHILS # (AUTO) 12.1 10^3/uL (1.8-7.8); NEUTROPHILS % (AUTO) 92 % (42-75); PLATELET COUNT 332 10^3/uL (130-400); WHITE BLOOD COUNT 13.3 10^3/uL (4.3-11.0)
[2020-01-20 06:14] LABS: CHLORIDE 111 MMOL/L (98-107); FIBRIN DEGRADATION PRODUCTS 1.19 UG/ML (0.00-0.49); INR 1.5 (0.8-1.4); POTASSIUM 4.9 MMOL/L (3.6-5.0); PROTHROMBIN TIME PATIENT 18.5 SEC (12.2-14.7)
[2020-01-20 06:15] LABS: SODIUM 139 MMOL/L (135-145)
[2020-01-20 06:16] LABS: CALCIUM 8.6 MG/DL (8.5-10.1); GLUCOSE 145 MG/DL (70-105)
[2020-01-20 06:18] LABS: CARBON DIOXIDE 18 MMOL/L (21-32)
[2020-01-20 06:20] LABS: CREATININE SERUM 1.16 MG/DL (0.60-1.30); GFR ESTIMATED > 60; PHOSPHORUS 3.8 MG/DL (2.3-4.7)
[2020-01-20 06:21] LABS: BUN/CREATININE RATIO 22
[2020-01-20 06:23] LABS: MAGNESIUM 1.9 MG/DL (1.6-2.4)
[2020-01-20] MEDS: VITAMIN D3 125 MCG (5,000 UNITS) CAPSULE PO SCH (09:19)
[2020-01-20] MEDS: RIVAROXABAN 20 MG TABLET (XARELTO) PO SCH (09:19)
[2020-01-20] MEDS: dexAMETHasone 6 MG TAB (DECADRON) PO SCH (09:19)
[2020-01-20] MEDS: PANTOPRAZOLE 40 MG (PROTONIX) TAB PO SCH (09:19)
[2020-01-20] MEDS: RT-ALBUTEROL INHALER HFA (VENTOLIN HFA) 18 GM IH SCH ×4 (09:36→19:46)
--- NOTE | 2020-01-20 09:44 | Progress Note - Hospitalist ---
Subjective HPI/CC On Admission Date Seen by Provider: Jan 20, 2020 Time Seen by Provider: 09:38 patient is a 59-year-old male past medical history of hypertension hyperlipidemia who presented to the emergency department due to shortness of breath. He states he was exposed to COVID at work and subsequently was tested but was asymptomatic. He was found to be positive for COVID on . Roughly one week later he developed symptoms on 01/10. he was quite hypoxic and required a nonrebreather to maintain oxygen saturations. He is been admitted to the ICU. This morning he states that he is feeling better. He did have some nausea overnight but denies any vomiting, loss of taste or smell, or diarrhea. Subjective/Events-last exam Pt reports "doing bad." Was just up to the toilet and walked back to bed. Sats dropped to 79 while I was at bed side. Pt assisted back to bed by REJI Her and slowly recovered to sats in the 90s. Apparently he had taken his BiPAP off on his own to eat breakfast this morning and sats dropped very low with that too. He was advised this is very dangerous to do without supervision and switching to Vapotherm. Focused Exam Lactate Level 01/17/20 23:10: Lactic Acid Level 2.24*H 01/18/20 01:25: Lactic Acid Level 0.99 Objective Exam Vital Signs Vital Signs Date Time Temp Pulse Resp B/P (MAP) Pulse Ox O2 Delivery O2 Flow Rate FiO2 01/20/20 08:00 Vapotherm 30.00 80 01/20/20 08:00 48 10 135/91 (106) 94 01/20/20 07:50 35.9 Capillary Refill : Greater Than 3 Seconds General Appearance: Anxious, Mild Distress Respiratory: Rhonci; No Wheezing; Other (tachypneic) Cardiovascular: No Murmur, Bradycardia Gastrointestinal: Normal Bowel Sounds, Non Tender, Soft Neurologic/Psychiatric: Alert, Oriented x3 Results/Procedures Lab Laboratory Tests 01/20/20 05:30 Patient resulted labs reviewed. Imaging: Reviewed Imaging Report Assessment/Plan Assessment and Plan Assess & Plan/Chief Complaint Acute hypoxic respiratory failure COVID19 Bilateral Pneumonia Outside of window for Remdesivir as diagnosed on 01/04 and patient declines Convalescent plasma given 01/18 Decadron Continue Cefepime and Azithro MAT protocol Lovenox therapuetic dosing for now Continue BiPAP and Vapotherm during day as tolerates Recovered from trip to the bathroom while I was at bedside but had significant decrease in sats and increased work of breathing, did improve; discussed need to monitor closely and if continue to have increased work of breathing may need intubation but overall was improving with rest HTN HLD BP well controlled, trend for now History of recurrent VTE Continue home anticoagulation DVT ppx: Lovenox Critical Care Critically Ill Patient Diagnosis/Problems Diagnosis/Problems (1) Acute respiratory failure Status: Acute Qualifiers: Respiratory failure complication: hypoxia Qualified Codes: J96.01 - Acute respiratory failure with hypoxia (2) Pneumonia due to COVID-19 virus Status: Acute (3) History of recurrent deep vein thrombosis (DVT) Status: Acute (4) Paroxysmal atrial fibrillation Status: Acute (5) S/P bone marrow transplant Status: Acute (6) Hx of multiple myeloma Status: Acute (7) Chronic anticoagulation Status: Chronic Clinical Quality Measures DVT/VTE Risk/Contraindication: Risk Factor Score Per Nursin RFS Level Per Nursing on Admit: 4+=Very High YANG CARMEN MD Jan 20, 2020 09:44
[2020-01-20] MEDS ORDERED: FUROSEMIDE 40 MG/4 ML INJ (LASIX) IVP NR (10:30)
--- NOTE | 2020-01-20 13:55 | NUR ---
"RD ASSESSMENT PMHx: HTN; hypercholesterolemia; CAD; DVT; afib; GERD; pituitary disease; PT INTERACTION: Note pt is COVID-19 positive, per chart review. Note attempt to contact pt via phone for nutrition assessment, but pt did not answer. Note all information gathered for nutrition assessment is per chart review. Note avg PO intake 57% x2d. Note last BM was 01/19, and pt not currently on bowel regimen. Note unable to determine recent wt hx. ABNORMAL NUTRITION-RELATED LAB VALUES LOW: HIGH: Cl 111; BUN 26; glu 145 Est. kcal needs: 1625 kcal | 20 kcal/kg Est. Pro needs: 65 g Pro | 0.8 g Pro/kg PES STATEMENT: Inadequate oral intake (NI-2.1) related to loss of appetite as evidenced by chart review | avg PO intake 57% x2d INTERVENTION: Continue with current diet order of Regular diet. Add Ensure Enlive (vary) to meals TID, for increased kcal intake. Provides 350 kcal and 13 g Pro per serving. Will continue to follow and reassess as pt needs, intake, and status change. Manuel Duran, MS RD LD"
--- NOTE | 2020-01-20 22:34 | NUR ---
Patient called this RN due to complaints of chest pain. States has a tight band feeling around chest, when press on area states no pain. EKG performed and unremarkable. EICU doctor called and orders received to check a troponin and give tylenol. Will continue to monitor.
[2020-01-21] VITALS (25 sets, daily range): BP systolic 91–160; BP diastolic 76–102
[2020-01-21] MEDS: CEFEPIME 1,000 MG/SWFI 10 ML IV PUSH IV SCH ×10 (00:24→23:23)
[2020-01-21] MEDS: HYDROcodone/APAP 5 MG/325 MG (LORTAB) TAB PO PRN ×3 (00:57→20:16)
[2020-01-21] MEDS: AZITHROMYCIN 500 MG/NS 250 ML IVPB IV SCH ×2 (03:21)
[2020-01-21 03:52] LABS: POTASSIUM 4.9 MMOL/L (3.6-5.0)
[2020-01-21 03:54] LABS: CALCIUM 8.9 MG/DL (8.5-10.1)
[2020-01-21 03:58] LABS: CREATININE SERUM 1.29 MG/DL (0.60-1.30); PHOSPHORUS 3.7 MG/DL (2.3-4.7)
[2020-01-21 05:21] LABS: BASOPHILS % (AUTO) 0 % (0-10); EOSINOPHILS % (AUTO) 0 % (0-10); HEMATOCRIT 34 % (40-54); HEMOGLOBIN 11.3 g/dL (13.3-17.7); LYMPHOCYTES # (AUTO) 0.5 10^3/uL (1.0-4.0); LYMPHOCYTES % (AUTO) 5 % (12-44); MEAN CORPUSCULAR HEMOGLOBIN 30 pg (25-34); MEAN CORPUSCULAR HGB CONC 33 g/dL (32-36); MEAN CORPUSCULAR VOLUME 88 fL (80-99); MEAN PLATELET VOLUME 10.9 fL (9.0-12.2); MONOCYTES # (AUTO) 0.7 10^3/uL (0.0-1.0); MONOCYTES % (AUTO) 6 % (0-12); NEUTROPHILS # (AUTO) 10.1 10^3/uL (1.8-7.8); NEUTROPHILS % (AUTO) 89 % (42-75); PLATELET COUNT 337 10^3/uL (130-400); WHITE BLOOD COUNT 11.4 10^3/uL (4.3-11.0)
[2020-01-21] MEDS ORDERED: morphine INJ 4 MG/ML 1 ML (VIAL/SYRINGE) ONE (06:02)
[2020-01-21] MEDS ORDERED: morphine INJ 10 MG/ML 1ML (SYR OR VIAL) IVP STA (06:04)
[2020-01-21] MEDS: ONDANSETRON 4 MG/2 ML (SDV) Z0FRAN IVP PRN ×2 (06:12→08:52)
--- NOTE | 2020-01-21 06:13 | NUR ---
Patient moaning in pain and grabbing chest. States has a sharp pain in middle of upper back and in the center of chest. Rates 10/10 on numeric scale. EICU called and orders received for 1mg morphine. Patient states nauseated, zofran also given at this time. Will continue to monitor.
[2020-01-21] MEDS: RT-ALBUTEROL INHALER HFA (VENTOLIN HFA) 18 GM IH SCH ×4 (07:14→19:05)
[2020-01-21] MEDS ORDERED: KETOROLAC 30 MG/ML VIAL ONE (08:44)
[2020-01-21] MEDS ORDERED: LIDOCAINE 2% VISCOUS 15 ML UDC PO PRN (08:45)
[2020-01-21] MEDS ORDERED: KETOROLAC 15 MG/ML VIAL IVP NR (08:45)
[2020-01-21] MEDS ORDERED: ANTACID SUSP 30 ML UDC (MYLANTA) PO PRN (08:45)
[2020-01-21] MEDS ORDERED: ANTACID SUSP 30 ML UDC (MYLANTA) ONE (08:45)
[2020-01-21] MEDS ORDERED: LIDOCAINE 2% VISCOUS 15 ML UDC ONE (08:48)
[2020-01-21] MEDS: VITAMIN D3 125 MCG (5,000 UNITS) CAPSULE PO SCH (08:50)
[2020-01-21] MEDS: PANTOPRAZOLE 40 MG (PROTONIX) TAB PO SCH (08:50)
[2020-01-21] MEDS: dexAMETHasone 6 MG TAB (DECADRON) PO SCH (08:50)
[2020-01-21] MEDS: RIVAROXABAN 20 MG TABLET (XARELTO) PO SCH (08:55)
--- NOTE | 2020-01-21 09:00 | NUR ---
PT C/O OF PAIN STERNAL CHEST PAIN, STATES " IT FEELS LIKE A AMOL GOING THROUGH BY CHEST AND BACK." PT RATES PAIN AT 10/10, DR CARMEN IN ROOM AND , NEW VERBAL ORDERS RECEIVED FOR GI COCKTAIL AND TORADOL 15MG IV X ONCE IF GI COCKTAIL PROVIDES NO RELIEF.
--- NOTE | 2020-01-21 09:13 | Progress Note - Hospitalist ---
Subjective HPI/CC On Admission Date Seen by Provider: Jan 21, 2020 Time Seen by Provider: 09:02 patient is a 59-year-old male past medical history of hypertension hyperlipidemia who presented to the emergency department due to shortness of breath. He states he was exposed to COVID at work and subsequently was tested but was asymptomatic. He was found to be positive for COVID on . Roughly one week later he developed symptoms on 01/10. he was quite hypoxic and required a nonrebreather to maintain oxygen saturations. He is been admitted to the ICU. This morning he states that he is feeling better. He did have some nausea overnight but denies any vomiting, loss of taste or smell, or diarrhea. Subjective/Events-last exam Pt reports doing "bad." He states he has severe chest pain overnight that did not respond to morphine. Rates it a 01/20. Had epigastric pain on exam. Has a history of GERD and takes protonix at home. Objective Exam Vital Signs Vital Signs Date Time Temp Pulse Resp B/P (MAP) Pulse Ox O2 Delivery O2 Flow Rate FiO2 01/21/20 08:47 35.9 01/21/20 08:00 52 16 158/102 (120) 97 Vapotherm 40.00 95.00 01/21/20 07:14 95 Capillary Refill : Greater Than 3 Seconds General Appearance: Anxious, Mild Distress Respiratory: No Accessory Muscle Use, Decreased Breath Sounds, Other (on Vapotherm) Cardiovascular: Regular Rate, Rhythm, No Edema, No Murmur Gastrointestinal: Normal Bowel Sounds, Soft; No Distended, No Guarding; Tenderness (mild in epigastric patient described it as "interesting") Extremity: No Calf Tenderness, No Pedal Edema Neurologic/Psychiatric: Alert, Oriented x3, Normal Mood/Affect Results/Procedures Lab Laboratory Tests 01/21/20 03:07 Patient resulted labs reviewed. Imaging: Reviewed Imaging Report Assessment/Plan Assessment and Plan Assess & Plan/Chief Complaint Acute hypoxic respiratory failure COVID19 Bilateral Pneumonia Chest pain Outside of window for Remdesivir as diagnosed on 01/04 and patient declines Convalescent plasma given 01/18 Decadron Continue Cefepime and Azithro MAT protocol On vapotherm and respiratory status improved from yesterday but now with chest pain Will trial GI cocktail given epigastric pain CTA ordered despite being on Xarelto to rule out PE Discussed with eICU, agree with plan, appreciate their assistance Discussed with Cardiology, Dr Nesbitt, appreciate assistance I called and updated of status and plan of care going forward HTN HLD BP well controlled, trend for now History of recurrent VTE h/o Multiple myeloma and BMT Continue anticoagulation Discussed with Hematology given history of BMT- Dr Phipps to review DVT ppx: Lovenox Critical Care Critically Ill Patient Diagnosis/Problems Diagnosis/Problems (1) Acute respiratory failure Status: Acute Qualifiers: Respiratory failure complication: hypoxia Qualified Codes: J96.01 - Acute respiratory failure with hypoxia (2) Pneumonia due to COVID-19 virus Status: Acute (3) History of recurrent deep vein thrombosis (DVT) Status: Acute (4) Paroxysmal atrial fibrillation Status: Acute (5) S/P bone marrow transplant Status: Acute (6) Hx of multiple myeloma Status: Acute (7) Chronic anticoagulation Status: Chronic Clinical Quality Measures DVT/VTE Risk/Contraindication: Risk Factor Score Per Nursin RFS Level Per Nursing on Admit: 4+=Very High YANG CARMEN MD Jan 21, 2020 09:13
[2020-01-21] MEDS ORDERED: HOLD METFORMIN - RECEIVED CONTRAST 20 ML VIAL IV SCH (09:15)
[2020-01-21] MEDS ORDERED: NS 100 ML (IVPB) BAG IV ONE (09:15)
[2020-01-21] MEDS ORDERED: IOHEXOL 350 MG/ML 100 ML (OMNIPAQUE 350) VIAL IV ONE (09:15)
[2020-01-21] MEDS ORDERED: ALPRAZolam 0.5 MG (XANAX) TAB PO PRN (09:45)
--- NOTE | 2020-01-21 09:47 | Diagnostic Imaging Report ---
EXAMINATION: CT angiography of the chest. TECHNIQUE: Contrast enhanced thin section helical images were obtained through the chest with intravenous contrast timed for the optimal opacification of the arterial structures per CTA protocol. Post-processing, reconstructions and interpretation of angiographic images of the vessels was performed. 3D MIP reconstructions were performed and reviewed. All CT scans use one or more of the following dose optimizing techniques: automated exposure control, MA and/or KvP adjustment based on a patient size and exam type, or iterative reconstruction. HISTORY: COVID positive, shortness of breath. COMPARISON: Chest radiograph 01/17/2020. FINDINGS: Vascular: No filling defects within the pulmonary arteries. Thoracic aorta is normal in caliber. Calcification of the aorta and coronary vessels. Thyroid: The thyroid is normal. Mediastinum: Heart size is normal without significant pericardial effusion. Multiple prominent mediastinal lymph nodes are not pathologically enlarged and are likely reactive. Lungs and airways: Patchy groundglass consolidation throughout both lungs. No pleural effusion or pneumothorax. The airways are normal. Upper abdomen: Cholelithiasis. A small hiatal hernia is present. A right renal cyst is present. Musculoskeletal: Degenerative changes of the spine without suspicious osseous lesion or compression fracture. IMPRESSION: 1. No findings of pulmonary embolus. 2. Patchy groundglass consolidation throughout both lungs compatible with pneumonia and history of COVID. Dictated by: Dictated on workstation # [id number]
[2020-01-21] MEDS ORDERED: ASPIRIN 81 MG CHEW (CHILDREN'S ASA) ONE (10:42)
[2020-01-21] MEDS ORDERED: CLOPIDOGREL 300 MG (PLAVIX) TABLET PO ONE (10:42)
--- NOTE | 2020-01-21 10:54 | NUR ---
VERBAL ORDERS RECEIVED FROM DR BETANCOURT TO GIVE 600MG PLAVIX AND 324 MG BABY ASA. MEDICATIONS PULLED AND GIVEN. PT VERBALIZES CONSENT OF HEART CATHETERIZATION,
[2020-01-21] MEDS ORDERED: HEParin (CATH LAB) 2,000 ML IV ONE (10:55)
[2020-01-21] MEDS ORDERED: NS IV 1000 ML 1,000 ML ONE (10:55)
[2020-01-21] MEDS ORDERED: LIDOCAINE 1% INJ 20 ML 20 ML VIAL ONE (10:55)
[2020-01-21] MEDS ORDERED: HEParin 1000 UNIT/ML (10ML VIAL) FOR BOLUS ONE (11:05)
[2020-01-21] MEDS ORDERED: NITRO DRIP 25000 MCG/D5W 250 ML IV ONE (11:06)
[2020-01-21] MEDS ORDERED: EPTIFIBATIDE BOLUS 10 ML IV ONE ×2 (11:06→11:55)
[2020-01-21] MEDS ORDERED: fentaNYL INJECTION 100 MCG/2 ML AMP ONE (11:09)
[2020-01-21] MEDS ORDERED: MIDAZOLAM 5 MG/5 ML (VERSED) VIAL ONE (11:09)
--- NOTE | 2020-01-21 11:18 | Cardiac Procedure Note-CS/ASA ---
Pre-Procedure Note Pre-Op Procedure Note H&P Reviewed The H&P was reviewed, patient examined and no changes noted. Date H&P Reviewed: Jan 21, 2020 Time H&P Reviewed: 11:18 Conscious Sedation Pre-Proced Time 11:18 ASA Score 3 For ASA 3 and 4: Consider anesthesia and medical clearance. Also, for patients with a history of failed moderate sedation consider anesthesia. Airway Lungs Heart ASA score ASA 1: a normal healthy patient ASA 2: a patient with a mild systemic disease (mid diabetes, controlled hypertension, obesity x ASA 3: a patient with a severe systemic disease that limits activity (angina, COPD, prior Myocardial infarction) ASA 4: a patient with an incapacitating disease that is a constant threat to life (CHF, renal failure) ASA 5: a moribund patient not expected to survive 24 hrs. (ruptured aneurysm) ASA 6: a declared brain- patient whose organs are being harvested. For emergent operations, add the letter E after the classification Mallampati Classification Grade 3 Sedation Plan Analgesia, Amnesia, Plan communicated to team members, Discussed options with patient/fam, Discussed risks with patient/fam The patient is an appropriate candidate to undergo the planned procedure, sedation, and anesthesia. The patient immediately re-assessed prior to indication. VLADIMIR BETANCOURT MD Jan 21, 2020 11:18 am
--- NOTE | 2020-01-21 11:18 | Consultation-Cardiology ---
HPI-Cardiology Cardiology Consultation Date of Consultation 01/21/20 Date of Admission Time Seen by Provider: 09:02 HPI 59 years old gentleman with history of multiple myeloma, history of DVT and IVC filter, hypertension and hyperlipidemia admitted for increasing shortness of breath on January 18, 2020, diagnosed with COVID positive and bilateral pulmonary infiltrate. He denied any previous chest pain, palpitation, he is currently short of breath on Vapotherm, compensating well. Started to have chest pain last night had an episode of chest pain without EKG changes that improved later during the night then started again with severe chest pain in the retrosternal area earlier this morning. Given GI cocktail and nitroglycerin, reported improvement. On my evaluation he was feeling better. EKG showed ST elevation in the inferior lateral leads done today. Denied any previous cardiac history. Home Medications & Allergies Allergies: Coded Allergies: No Known Drug Allergies (Unverified , 01/21/16) Home Medication List Reviewed: Yes [id number] Hx Patient Social History Marital Status: Employed/Student: employed Alcohol Use: Denies Use Recreational Drug Use: No Smoking Status: Never a Smoker Recent Foreign Travel: No Recent Infectious Disease Expo: No Recent Hopitalizations: No Immunizations Up To Date Date of Pneumonia Vaccine: Apr 13, 2017 Date of Influenza Vaccine: Dec 24, 2015 Past Medical History Discussed below Family Medical History Significant Family History: No Pertinent Family Hx Family Medical Hx Noncontributory Review of Systems-General Review of Systems Constitutional: no symptoms reported, see HPI, fever, malaise EENTM: no symptoms reported Respiratory: cough, orthopnea; No phlegm; short of breath Cardiovascular: see HPI, chest pain, edema (chronic); No palpitations Gastrointestinal: no symptoms reported, see HPI; No abdominal pain, No diarrhea; nausea; No vomiting Genitourinary: no symptoms reported, see HPI; No decreased output, No dysuria Musculoskeletal: no symptoms reported, see HPI Skin: no symptoms reported, see HPI Psychiatric/Neurological: No Symptoms Reported, See HPI Reviewed Test Results Reviewed Test Results Lab Laboratory Tests Test 01/20/20 22:47 01/21/20 03:07 Range/Units Troponin I < 0.028 <0.028 NG/ML White Blood Count 11.4 H 4.3-11.0 10^3/uL Red Blood Count 3.83 L 4.30-5.52 10^6/uL Hemoglobin 11.3 L 13.3-17.7 g/dL Hematocrit 34 L 40-54 % Mean Corpuscular Volume 88 80-99 fL Mean Corpuscular Hemoglobin 30 25-34 pg Mean Corpuscular Hemoglobin Concent 33 32-36 g/dL Red Cell Distribution Width 15.9 H 10.0-14.5 % Platelet Count 337 130-400 10^3/uL Mean Platelet Volume 10.9 9.0-12.2 fL Immature Granulocyte % (Auto) 1 % Neutrophils (%) (Auto) 89 H 42-75 % Lymphocytes (%) (Auto) 5 L 12-44 % Monocytes (%) (Auto) 6 0-12 % Eosinophils (%) (Auto) 0 0-10 % Basophils (%) (Auto) 0 0-10 % Neutrophils # (Auto) 10.1 H 1.8-7.8 10^3/uL Lymphocytes # (Auto) 0.5 L 1.0-4.0 10^3/uL Monocytes # (Auto) 0.7 0.0-1.0 10^3/uL Eosinophils # (Auto) 0.0 0.0-0.3 10^3/uL Basophils # (Auto) 0.0 0.0-0.1 10^3/uL Immature Granulocyte # (Auto) 0.1 0.0-0.1 10^3/uL Sodium Level 137 135-145 MMOL/L Potassium Level 4.9 3.6-5.0 MMOL/L Chloride Level 105 98-107 MMOL/L Carbon Dioxide Level 19 L 21-32 MMOL/L Anion Gap 13 5-14 MMOL/L Blood Urea Nitrogen 37 H 7-18 MG/DL Creatinine 1.29 0.60-1.30 MG/DL Estimat Glomerular Filtration Rate 57 BUN/Creatinine Ratio 29 Glucose Level 201 H 70-105 MG/DL Calcium Level 8.9 8.5-10.1 MG/DL Phosphorus Level 3.7 2.3-4.7 MG/DL Magnesium Level 2.0 1.6-2.4 MG/DL Physical Exam Physical Exam Vital Signs Vital Signs - First Documented 01/17/20 01/18/20 01/18/20 22:35 01:38 12:00 Temp 36.8 Pulse 80 Resp 22 B/P (MAP) 135/89 (104) Pulse Ox 95 O2 Delivery Nasal Cannula O2 Flow Rate 3.00 FiO2 85 Capillary Refill : Greater Than 3 Seconds Height, Weight, BMI Height: 5'8" Weight: 184lbs. oz. 83.456344hi; 29.00 BMI Method:Stated General Appearance: Anxious, Mild Distress HEENT: PERRL/EOMI, Moist Mucous Membranes; No Scleral Icterus (L), No Scleral Icterus (R) Neck: Normal Inspection, Supple Respiratory: No Accessory Muscle Use, Decreased Breath Sounds, Other (on Vap otherm) Cardiovascular: Regular Rate, Rhythm, No Edema, No Murmur Gastrointestinal: Normal Bowel Sounds, Soft; No Distended, No Guarding; Tenderness (mild in epigastric patient described it as "interesting") Extremity: No Calf Tenderness, No Pedal Edema Neurologic/Psychiatric: Alert, Oriented x3, Normal Mood/Affect Skin: Normal Color, Warm/Dry A/P-Cardiology Admission Diagnosis Acute ST elevation myocardial infarction Acute respiratory failure COVID-19 Pneumonia Assessment/Plan Acute ST elevation myocardial infarction in the inferolateral leads, started to have chest pain earlier today, reporting improvement in the pain. There is significant EKG changes, patient is at increased risk, recommended proceeding with emergency cardiac catheterization possible PTCA COVID-19 positive, bilateral pulmonary infiltrate with acute respiratory failure, maintained on Vapotherm, managed by primary care team History of DVT, IVC filter, maintained on Xarelto as an outpatient History of multiple myeloma, bone marrow transplant done in the past. Hypertension, continue to monitor blood pressure Clinical Quality Measures DVT/VTE Risk/Contraindication: Risk Factor Score Per Nursin RFS Level Per Nursing on Admit: 4+=Very High VLADIMIR BETANCOURT MD Jan 21, 2020 11:18
[2020-01-21] MEDS ORDERED: niCARdipine 25 MG/10 ML (CARDENE) AMP IV ONE (12:02)
[2020-01-21] MEDS ORDERED: NS (IVPB) 250 ML ONE (12:02)
--- NOTE | 2020-01-21 12:22 | NUR ---
1125 PT TO HEART CATH VIA BED ACCOMPANIED BY HEART CATH STAFF.
[2020-01-21] MEDS ORDERED: PATIENT MAY USE OWN MEDS, ALL PO SCH (12:30)
--- NOTE | 2020-01-21 12:33 | Cardiac Cath Report ---
Cardiac Cath Report Physician (s)/Store Associate (s) Physician VLADIMIR BETANCOURT MD Pre-Procedure Diagnosis Pre-Procedure Diagnosis: acute ST elevation myocardial infarction Post-Procedure Note Procedure Start Date: Jan 21, 2020 Name of Procedure: Left heart catheterization Left ventriculogram [place] catheter with thrombectomy Stent to the right coronary artery Findings/Procedure Note PROCEDURE NOTE: 59 years old gentleman with history of multiple myeloma, hypertension hyperlipidemia, admitted for COVID 19 pneumonia, and respiratory failure on Vapotherm. Experienced an episode of chest pain last night that improved, no acute EKG changes initially, started to have chest pain again this morning with EKG changes. Had ST elevation in the inferolateral leads, decision was made to proceed with emergency cardiac catheterization possible PTCA After explaining the procedure to the patient, all pros and cons were explained, all questions were answered. The patient signed the consent and then he was placed on the cardiac catheterization laboratory. Groin was prepped SL fashion local anesthesia was used. Sheath placed in the right femoral artery. Sena right and left catheter were used to access the coronary system. Pigtail was used to access the left ventricular cavity. Left ventriculogram was done Patient had heavy thrombus in the proximal and mid right coronary artery with ruptured plaque, [place] catheter unavailable in the [employer] was only 7 Israeli, I upgraded the sheath 7 Israeli sheath, patient received 5000 units of heparin, double bolus Integrilin. JR guide was advanced to the right coronary artery and BMW wire advanced and parked distally then I used 7 Israeli [place] catheter for thrombectomy with multiple runs, slight improvement the thrombus burden. Primary stenting was done using Liliana 4 x 28 mm deployed under 15 kellen up to 4.1 5 mm with excellent results. One does of 200 g Cardene given. At the end of the procedure the sheath was removed. Closure device was used FINDINGS: Hemodynamics LV 129/7, end diastolic pressure 7 Aorta 122/76 mean of 87 ANATOMY: Left Main is free of obstructive disease Left Anterior Descending is slightly tortuous with mild disease nonobstructive disease Left Circumflex has mild disease nonobstructive disease Right Coronory Artery is large dominant artery with heavy thrombus and ulcerated plaque in the proximal and midportion, thrombectomy with [place] catheter 7 Israeli then deployment with primary stenting of Liliana 4 x 28 mm expanded to 4.15 mm with excellent results LV Gram was done showing normal left ventricular end-diastolic pressure, the left ventricle is normal in size, hypokinesia to akinesia at the basal to mid inferior wall, ejection fraction 40 percent CONCLUSION: 1. Acute ST elevation myocardial infarction with emergency cardiac catheterization and stenting to the right coronary artery and thrombectomy 2. Heavy thrombus with ulcerated plaque in the proximal and midright coronary artery, [place] catheter then deployment of Liliana 4 x 28 expanded to 4.15 mm with excellent results 3. Mild disease in the LAD and circumflex artery 4. Normal left ventricular size, hypokinesia to akinesia at the basal to midinferior wall with ejection fraction 40 percent DISCUSSION AND RECOMMENDATION: Patient was started on aspirin and Plavix, has been on Xarelto as an outpatient which will continue at this point. We will maximize statin therapy. Anesthesia Type: Conscious Sedation Estimated blood loss (mL): 35 ml Contrast Amount: 75 ml Total Radiation Dose: 769 mGy Post-Procedure Diagnosis Post-operative diagnosis: Acute ST elevation myocardial infarction (1) Acute respiratory failure Qualifiers: Qualified Codes: J96.01 - Acute respiratory failure with hypoxia (2) Pneumonia due to COVID-19 virus (3) History of recurrent deep vein thrombosis (DVT) (4) Paroxysmal atrial fibrillation (5) S/P bone marrow transplant (6) Hx of multiple myeloma (7) Chronic anticoagulation VLADIMIR BETANCOURT MD Jan 21, 2020 12:33
[2020-01-21] MEDS: NS IV 1000 ML 1,000 ML IV SCH ×2 (13:03→23:19)
--- NOTE | 2020-01-21 13:17 | NUR ---
1245 PT BACK TO ROOM ICU 12 FROM HEART CATH, REPORT RECEIVED FROM Manuel GLASS RN, PT DROWSY AWAKENS TO VERBAL STIMULI, SEE CATH/EP INTERVENTION 1310 PT'S UPDATED, DR BETANCOURT AT DOOR NO NEW ORDERS RECEIVED.
--- NOTE | 2020-01-21 16:06 | NUR ---
1515 PT'S DRESSING SITE NOTED TO HAVE INCREASED MILD OOZING, AND BRUISING NOTED, PT'S RIGHT LEG EDEMATOUS, HEMATOMA NOTED THIS RN HAD 2ND NURSE COME IN AND ASSIST WITH MANUAL PRESSURE, THIS GARBAGE PERSON PLACED CARBALLO CATHETER PER PT REQUEST, THEN THIS RN MASSAGED HEMATOMA. 1600 NEW DRESSING APPLIED, AND SANDBAG PLACED BACK ON PT. DR BETANCOURT NOTIFIED PT EDUCATED THAT BEDREST WOULD START OVER, AND THEREFORE NOT TO LIFT HEAD OR LEG. THIS RN REMAINS IN ROOM FOR GROIN CHECKS, PT VOICES NO C/O OF PAIN. WILL CONTINUE TO MONITOR.
[2020-01-21] MEDS: LACTATED RINGERS 1,000 ML IV SCH ×2 (20:12→23:19)
[2020-01-22] VITALS (24 sets, daily range): BP systolic 94–153; BP diastolic 62–97
[2020-01-22] MEDS: AZITHROMYCIN 500 MG/NS 250 ML IVPB IV SCH ×2 (03:53)
[2020-01-22 04:11] LABS: CHLORIDE 103 MMOL/L (98-107); SODIUM 135 MMOL/L (135-145)
[2020-01-22 04:12] LABS: CALCIUM 8.5 MG/DL (8.5-10.1)
[2020-01-22 04:13] LABS: GLUCOSE 161 MG/DL (70-105)
[2020-01-22 04:15] LABS: CARBON DIOXIDE 21 MMOL/L (21-32)
[2020-01-22 04:16] LABS: BASOPHILS % (AUTO) 0 % (0-10); EOSINOPHILS % (AUTO) 0 % (0-10); HEMATOCRIT 35 % (40-54); HEMOGLOBIN 11.6 g/dL (13.3-17.7); LYMPHOCYTES # (AUTO) 0.6 10^3/uL (1.0-4.0); LYMPHOCYTES % (AUTO) 6 % (12-44); MEAN CORPUSCULAR HEMOGLOBIN 29 pg (25-34); MEAN CORPUSCULAR HGB CONC 33 g/dL (32-36); MEAN CORPUSCULAR VOLUME 88 fL (80-99); MEAN PLATELET VOLUME 10.3 fL (9.0-12.2); MONOCYTES # (AUTO) 0.8 10^3/uL (0.0-1.0); MONOCYTES % (AUTO) 8 % (0-12); NEUTROPHILS # (AUTO) 8.2 10^3/uL (1.8-7.8); NEUTROPHILS % (AUTO) 86 % (42-75); PLATELET COUNT 307 10^3/uL (130-400); WHITE BLOOD COUNT 9.6 10^3/uL (4.3-11.0)
[2020-01-22 04:17] LABS: CREATININE SERUM 1.14 MG/DL (0.60-1.30); GFR ESTIMATED > 60
[2020-01-22 04:18] LABS: BUN/CREATININE RATIO 26
[2020-01-22 04:19] LABS: MAGNESIUM 2.1 MG/DL (1.6-2.4)
[2020-01-22] MEDS: CEFEPIME 1,000 MG/SWFI 10 ML IV PUSH IV SCH ×6 (06:36→17:43)
[2020-01-22] MEDS: RT-ALBUTEROL INHALER HFA (VENTOLIN HFA) 18 GM IH SCH ×4 (07:14→19:05)
--- NOTE | 2020-01-22 09:29 | Progress Note - Hospitalist ---
Subjective HPI/CC On Admission Date Seen by Provider: Jan 22, 2020 Time Seen by Provider: 09:23 patient is a 59-year-old male past medical history of hypertension hyperlipidemia who presented to the emergency department due to shortness of breath. He states he was exposed to COVID at work and subsequently was tested but was asymptomatic. He was found to be positive for COVID on 924. Roughly one week later he developed symptoms on 01/10. he was quite hypoxic and required a nonrebreather to maintain oxygen saturations. He is been admitted to the ICU. This morning he states that he is feeling better. He did have some nausea overnight but denies any vomiting, loss of taste or smell, or diarrhea. Subjective/Events-last exam Pt reports no pain today. All chest pain resolved. No new complaints. Only request is to have the lights turned off which I did. Objective Exam Vital Signs Vital Signs Date Time Temp Pulse Resp B/P (MAP) Pulse Ox O2 Delivery O2 Flow Rate FiO2 01/22/20 08:00 75 17 126/87 (100) 93 Vapotherm 40.00 90.00 01/22/20 07:14 90 01/22/20 03:53 36.0 Capillary Refill : Less Than 3 Seconds General Appearance: No Apparent Distress, WD/WN Respiratory: No Rhonci, No Wheezing; Other (on Vapotherm ) Cardiovascular: Regular Rate, Rhythm, No Murmur Gastrointestinal: Normal Bowel Sounds, Soft Neurologic/Psychiatric: Alert, Oriented x3 Results/Procedures Lab Laboratory Tests 01/22/20 02:50 Patient resulted labs reviewed. 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 Intervention to the RCA Continue DAPT, statin Acute hypoxic respiratory failure COVID19 Bilateral Pneumonia Chest pain Outside of window for Remdesivir as diagnosed on 01/04 and patient declines Convalescent plasma given 01/18 Decadron Continue Cefepime and Azithro MAT protocol On vapotherm and respiratory status improving, Vapotherm setting decreasing HTN HLD BP well controlled, trend for now History of recurrent VTE h/o Multiple myeloma and BMT Continue anticoagulation Discussed with Hematology given history of BMT- Dr Phipps reviewed chart and called me to inform no specifics needs or concerns due to BMT or history DVT ppx: Lovenox Critical Care Critically Ill Patient Diagnosis/Problems Diagnosis/Problems (1) Acute respiratory failure Status: Acute Qualifiers: Respiratory failure complication: hypoxia Qualified Codes: J96.01 - Acute respiratory failure with hypoxia (2) Pneumonia due to COVID-19 virus Status: Acute (3) History of recurrent deep vein thrombosis (DVT) Status: Acute (4) Paroxysmal atrial fibrillation Status: Acute (5) S/P bone marrow transplant Status: Acute (6) Hx of multiple myeloma Status: Acute (7) Chronic anticoagulation Status: Chronic Clinical Quality Measures DVT/VTE Risk/Contraindication: Risk Factor Score Per Nursin RFS Level Per Nursing on Admit: 4+=Very High YANG CARMEN MD Jan 22, 2020 09:29
[2020-01-22] MEDS: dexAMETHasone 6 MG TAB (DECADRON) PO SCH (09:34)
[2020-01-22] MEDS: PANTOPRAZOLE 40 MG (PROTONIX) TAB PO SCH (09:34)
[2020-01-22] MEDS: VITAMIN D3 125 MCG (5,000 UNITS) CAPSULE PO SCH (09:34)
[2020-01-22] MEDS: NS IV 1000 ML 1,000 ML IV SCH (09:35)
[2020-01-22] MEDS: CLOPIDOGREL 75 MG (PLAVIX) TABLET PO SCH (09:35)
[2020-01-22] MEDS: ASPIRIN E.C. 81 MG (ECOTRIN) TAB PO SCH (09:35)
--- NOTE | 2020-01-22 11:03 | Cardiology Progress Note ---
Subjective Date Seen by Provider: Jan 22, 2020 Time Seen by Provider: 11:01 Subjective/Events-last exam Patient is laying down in bed, feeling better, breathing better, denied any chest pain Review of Systems General: No Chills, No Night Sweats, No Fatigue, No Malaise, No Appetite, No Other HEENT: No Head Aches, No Visual Changes, No Eye Pain, No Ear Pain, No Dyspha radha, No Sinus Congestion, No Post Nasal Drip, No Sore Throat, No Other Pulmonary: No Dyspnea, No Cough, No Pleuritic Chest Pain, No Other Cardiovascular: No: Chest Pain, Palpitations, Orthopnea, Paroxysmal Noc. Dyspnea, Edema, Lt Headedness, Other Objective-Cardiology Exam Last Set of Vital Signs Vital Signs 01/22/20 01/22/20 03:53 08:00 Temp 36.0 Pulse 75 Resp 17 B/P (MAP) 126/87 (100) Pulse Ox 91 O2 Delivery Vapotherm O2 Flow Rate 30.00 FiO2 80 Capillary Refill : Less Than 3 Seconds I&O Intake and Output 01/22/20 00:00 Intake Total 1430 ml Output Total 2125 ml Balance -695 ml Intake Oral 430 ml IV Total 1000 ml Output Urine Total 1725 ml Post Void Residual 400 ml General: Alert, Oriented X3, Cooperative HEENT: Atraumatic, PERRLA Neck: Supple, No JVD, No Thyromegaly Lungs: Clear to Auscultation, Normal Air Movement Heart: Regular Rate, Normal S1, Normal S2, No Murmurs Abdomen: Normal Bowel Sounds, Soft, No Tenderness, No Hepatosplenomegaly, No Masses Extremities: No Clubbing, No Cyanosis, No Edema, Normal Pulses, No Tenderness/Swelling Skin: No Rashes, No Breakdown, Other (bruising on the right groin) Neuro: Normal Speech, Strength at 5/5 X4 Ext, Normal Tone, Sensation Intact Psych/Mental Status: Mental Status NL, Mood NL Results Lab Laboratory Tests 01/22/20 02:50 A/P-Cardiology Admission Diagnosis Acute ST elevation myocardial infarction Acute respiratory failure COVID-19 Pneumonia Assessment/Plan Acute ST elevation myocardial, occurred while in the hospital, emergency cardiac catheterization was carried out with thrombectomy and stenting using Liliana 4 x 28 mm stent expanded to 4.15 with excellent results. Continue on aspirin and Plavix at this time COVID-19 positive, bilateral pulmonary infiltrate with acute respiratory shayla lure, improved, currently on nasal cannula and feeling better History of DVT, IVC filter, maintained on Xarelto, it was held today due to the hematoma in the groin yesterday. Currently appear to be stable I will restart Xarelto in the morning History of multiple myeloma, bone marrow transplant done in the past. Hypertension, continue to monitor blood pressure Hyperlipidemia, started on Lipitor 80 mg daily Clinical Quality Measures DVT/VTE Risk/Contraindication: Risk Factor Score Per Nursin RFS Level Per Nursing on Admit: 4+=Very High VLADIMIR BETANCOURT MD Jan 22, 2020 11:03
[2020-01-22] MEDS: HYDROcodone/APAP 5 MG/325 MG (LORTAB) TAB PO PRN (15:11)
[2020-01-22] MEDS: RIVAROXABAN 20 MG TABLET (XARELTO) PO SCH (17:42)
[2020-01-23] VITALS (25 sets, daily range): BP systolic 84–127; BP diastolic 50–85
[2020-01-23 03:27] LABS: BASOPHILS % (AUTO) 0 % (0-10); EOSINOPHILS % (AUTO) 0 % (0-10); HEMATOCRIT 34 % (40-54); HEMOGLOBIN 11.2 g/dL (13.3-17.7); LYMPHOCYTES # (AUTO) 0.7 10^3/uL (1.0-4.0); LYMPHOCYTES % (AUTO) 8 % (12-44); MEAN CORPUSCULAR HEMOGLOBIN 29 pg (25-34); MEAN CORPUSCULAR HGB CONC 33 g/dL (32-36); MEAN CORPUSCULAR VOLUME 88 fL (80-99); MEAN PLATELET VOLUME 10.4 fL (9.0-12.2); MONOCYTES # (AUTO) 0.7 10^3/uL (0.0-1.0); MONOCYTES % (AUTO) 8 % (0-12); NEUTROPHILS # (AUTO) 7.9 10^3/uL (1.8-7.8); NEUTROPHILS % (AUTO) 84 % (42-75); PLATELET COUNT 310 10^3/uL (130-400); WHITE BLOOD COUNT 9.4 10^3/uL (4.3-11.0)
[2020-01-23 03:37] LABS: POTASSIUM 5.3 MMOL/L (3.6-5.0)
[2020-01-23 03:38] LABS: CALCIUM 8.5 MG/DL (8.5-10.1)
[2020-01-23 03:43] LABS: CREATININE SERUM 1.33 MG/DL (0.60-1.30); PHOSPHORUS 2.4 MG/DL (2.3-4.7)
[2020-01-23 03:45] LABS: MAGNESIUM 2.3 MG/DL (1.6-2.4)
[2020-01-23] MEDS: CEFEPIME 1,000 MG/SWFI 10 ML IV PUSH IV SCH ×8 (06:26→16:43)
[2020-01-23] MEDS ORDERED: NS IV 1000 ML 1,000 ML IV SCH ×3 (06:30→12:07)
[2020-01-23] MEDS ORDERED: SODIUM BICARB 8.4% 50 MEQ/50 ML VIAL IV ONE (06:45)
[2020-01-23] MEDS: RT-ALBUTEROL INHALER HFA (VENTOLIN HFA) 18 GM IH SCH ×4 (07:22→18:20)
--- NOTE | 2020-01-23 08:18 | NUR ---
RN notified of pt's complaint of chest pain. EKG obtained during this time. Changes noted to EKG. TESSY Tao notified shortly after EKG obtained. Pt rating chest pain 6/10 currently at this time. Radiating from back to front of chest. Orders received to obtain consent for labor custodian at this time.
[2020-01-23] MEDS ORDERED: HEParin (CATH LAB) 2,000 ML IV ONE (08:32)
[2020-01-23] MEDS ORDERED: NS IV 1000 ML 1,000 ML ONE (08:32)
[2020-01-23] MEDS ORDERED: LIDOCAINE 1% INJ 20 ML 20 ML VIAL ONE (08:32)
[2020-01-23] MEDS ORDERED: MIDAZOLAM 5 MG/5 ML (VERSED) VIAL ONE (08:32)
[2020-01-23] MEDS ORDERED: fentaNYL INJECTION 100 MCG/2 ML AMP ONE (08:32)
[2020-01-23] MEDS ORDERED: HEParin 1000 UNIT/ML (10ML VIAL) FOR BOLUS ONE (08:32)
[2020-01-23] MEDS ORDERED: NITRO DRIP 25000 MCG/D5W 0 ML IV ONE (08:37)
[2020-01-23] MEDS ORDERED: EPTIFIBATIDE BOLUS 0 ML IV ONE (08:38)
[2020-01-23] MEDS ORDERED: EPTIFIBATIDE DRIP 0 ML IV ONE (08:38)
[2020-01-23] MEDS: CLOPIDOGREL 75 MG (PLAVIX) TABLET PO SCH (08:42)
--- NOTE | 2020-01-23 10:05 | Progress Note - Cardiology ---
Cardiology SOAP Progress Note Subjective: Midsternal chest pain. Never resolved follown PCI of 01/21/20, but got worse this am. No pleuritic component. No aggravating or relieving factors. No radiation. Mod to sev in intensity. Some shortness of breath No palp or syncope No n/v/d No focal weakness Objective: I&O/Vital Signs 01/22/20 01/22/20 01/22/20 01/23/20 22:00 22:10 23:00 00:00 Pulse 77 75 Resp 21 13 B/P (MAP) 94/63 (73) 94/66 (75) Pulse Ox 96 95 94 91 O2 Delivery Vapotherm Vapotherm Vapotherm Vapotherm O2 Flow Rate 30.00 30.00 30.00 30.00 80.00 80.00 FiO2 80 80 01/23/20 01/23/20 01/23/20 01/23/20 00:00 01:00 01:00 02:00 Pulse 84 86 86 81 Resp 03 03 22 B/P (MAP) 97/70 (79) 93/58 (70) 101/65 (77) Pulse Ox 96 96 95 O2 Delivery Vapotherm Vapotherm Vapotherm O2 Flow Rate 30.00 30.00 30.00 80.00 80.00 80.00 01/23/20 01/23/20 01/23/20 01/23/20 03:00 04:00 04:00 05:00 Pulse 73 68 58 Resp 23 22 18 B/P (MAP) 95/66 (76) 85/51 (62) 94/69 (77) Pulse Ox 92 94 91 95 O2 Delivery Vapotherm Vapotherm Vapotherm Vapotherm O2 Flow Rate 30.00 30.00 30.00 30.00 80.00 80.00 80.00 FiO2 80 01/23/20 01/23/20 01/23/20 01/23/20 06:00 07:22 08:00 08:47 Temp 35.8 Pulse 73 Resp 18 B/P (MAP) 96/70 (79) 105/67 (80) Pulse Ox 93 95 91 O2 Delivery Vapotherm Vapotherm Vapotherm Vapotherm O2 Flow Rate 30.00 30.00 25.00 25.00 80.00 70.00 FiO2 80 70 01/22/20 23:59 Intake Total 950 ml Output Total 825 ml Balance 125 ml Weight (Pounds): 184 Weight (Calculated Kilograms): 83.817691 Constitutional: AAO x 3, well-developed, well-nourished Respiratory: No accessory muscle use; other (good bilat air entry, diminished at the bases) Cardiovascular: regular rate-rhythm, S1 and S2, systolic murmur (soft TYSON at card base) Gastrointestional: No tender; soft; No guarding; audible bowel sounds Extremities: No clubbing, No cyanosis Neurologic/Psychiatric: oriented x 3, other (moves all limbs equally) Skin: No rash on exposed areas, No ulcerations on exposed areas Results/Procedures: Labs Laboratory Tests 01/23/20 02:49: White Blood Count 9.4, Red Blood Count 3.88L, Hemoglobin 11.2L, Hematocrit 34L, Mean Corpuscular Volume 88, Mean Corpuscular Hemoglobin 29, Mean Corpuscular Hemoglobin Concent 33, Red Cell Distribution Width 15.7H, Platelet Count 310, Mean Platelet Volume 10.4, Immature Granulocyte % (Auto) 1, Neutrophils (%) (Auto) 84H, Lymphocytes (%) (Auto) 8L, Monocytes (%) (Auto) 8, Eosinophils (%) (Auto) 0, Basophils (%) (Auto) 0, Neutrophils # (Auto) 7.9H, Lymphocytes # (Auto) 0.7L, Monocytes # (Auto) 0.7, Eosinophils # (Auto) 0.0, Basophils # (Auto) 0.0, Immature Granulocyte # (Auto) 0.1, Sodium Level 135, Potassium Level 5.3H, Chloride Level 103, Carbon Dioxide Level 22, Anion Gap 10, Blood Urea Nitrogen 37H, Creatinine 1.33H, Estimat Glomerular Filtration Rate 55, BUN/Creatinine Ratio 28, Glucose Level 162H, Calcium Level 8.5, Phosphorus Level 2.4, Magnesium Level 2.3 Microbiology 01/18/20 MRSA Screen - Final, Complete MRSA not isolated 01/17/20 Blood Culture - Preliminary, Resulted No growth Laboratory Tests 01/22/20 02:50 01/23/20 02:49 A/P: Assessment: Chest pain of undetermined etiology. Repeat cath today shows patent RCA stent. Acute ST elevation myocardial, occurred while in the hospital, treated on 01/21/20 with RCA stenting with Liliana 4 x 28 mm stent. Repeat cath of 01/23/20 shows patent proximal stent in a large, dominant RCA the very distal portion of which appear to have a minimal amount of thrombus. Here the vessel is of extremely small caliber and not amenable to intervention. Left coronary system does not indicate any significant disease. LVEDP 3 mmHg. LVEF approx 45% and hypokinesis of the diaphragmatic wall of the LV R groin hematoma after cath of 01/21/20, stable. 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 Hypertension, by history WATSON-1, probably related to intravascular vol depletion Hyperlipidemia, by history Plan: * Coronary status is stable and unchanged compared to the findings after c oronary intervention of 01/21/20 * iv fluids * Continue treatment with ASA, clopidogrel, and rivaroxaban at this time * Monitor labs AURE MARTI MD FACP FAC CCDS Jan 23, 2020 10:05
[2020-01-23] MEDS: VITAMIN D3 125 MCG (5,000 UNITS) CAPSULE PO SCH (10:11)
[2020-01-23] MEDS: ASPIRIN E.C. 81 MG (ECOTRIN) TAB PO SCH (10:11)
[2020-01-23] MEDS: dexAMETHasone 6 MG TAB (DECADRON) PO SCH (10:11)
[2020-01-23] MEDS: PANTOPRAZOLE 40 MG (PROTONIX) TAB PO SCH (10:11)
[2020-01-23] MEDS ORDERED: PATIENT MAY USE OWN MEDS, ALL PO SCH (10:15)
[2020-01-23] MEDS ORDERED: ASPIRIN 81 MG CHEW (CHILDREN'S ASA) PO NR (10:18)
--- NOTE | 2020-01-23 11:13 | Occupational Therapy Eval ---
OT Evaluation-General/PLF Medical Diagnosis Admission Date Jan 18, 2020 at 00:05 Medical Diagnosis: COVID+ Onset Date: Jan 05, 2020 Therapy Diagnosis Therapy Diagnosis: Decreased ADL status Height/Weight Height (Feet): 5 Height (Inches): 8 Weight (Pounds): 184 Precautions Precautions/Isolations: Airborne Isolation, Fall Prevention Weight Bear Status at time of evaluation, pt on bedrest. Referral Physician: Gasper Referral Reason: Activity Tolerance, Self Care, Evaluation/Treatment, Strengthening/ROM Medical History Additional Medical History HTN, HLD, BPNA, COVID Current History Dx COVID 01/04, experienced dx 01/10 Reviewed History: Yes Social History Home: Single Level Current Living Status: Spouse Entry Into Home: Stairs With Railing Steps Into Home: 3 ADL-Prior Level of Function SCALE: Activities may be completed with or without assistive devices. 7-Xryjmwgzdn-lmvukar completes the activity by him/herself with no assistance from a helper. 5-Set-up or Clean-up Assistance-helper sets up or cleans up; patient completes activity. [place] assists only prior to or following the activity. 4-Supervision or Touching Assistance-helper provides verbal cues and/or touching/steadying and/or contact guard assistance as patient completes activity. Assistance may be provided throughout the activity or intermittently. 3-Partial/Moderate Assistance-helper does LESS THAN HALF the effort. [place] lifts, holds or supports trunk or limbs, but provides less than half the effort. 2-Substantial/Maximal Assistance-helper does MORE THAN HALF the effort. [place] lifts or holds trunk or limbs and provides more than half the effort. 0-Ighayrmjr-ovutwr does ALL the effort. Patient does none of the effort to complete the activity. Or, the assistance of 2 or more helpers is required for the patient to complete the activity. If activity was not attempted, code reason: 7-Patient Refused. 9-Not Applicable-not attempted and the patient did not perform the activity before the current illness, exacerbation or injury. 10-Not Attempted due to Environmental Limitations-(lack of equipment, weather restraints, etc.). 88-Not Attempted due to Medical Conditions or Safety Concerns. ADL PLOF Comments IND without use of AD. Self Care: Independent Functional Cognition: Independent DME/Equipment: Tub/Shower DME/Equipment Comments No AD/ DME at home. 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 pt currently on bedrest. Pt alert/ oriented. Pt's eyes closed most of session, agrees to tx. States current pain: 4/10 in chest. Vitals monitored through session with a decrease of 02 to ~75%- 85% during minimal UE tasks and HR increase intermittently. Pt able to recover 02 sats within 1-2 min. Mental Status/Objective Patient Orientation: Normal For Age Attachments: Oxygen (vapotherm), SCD's, Telemetry Current Glasses/Contacts: Yes Hearing Aids: No Dentures/Partials: No Hand Dominance: Right Upper Extremity ROM WFL BUE Upper Extremity Coordination WFL BUE Upper Extremity Sensation WFL BUE Upper Extremity Strength Decreased bilaterally (pt's shoulder/ elbows not tested due to chest pain, though hand grasp slightly decreased) ADL-Treatment Eating (QC): 6 (per clinical judgment) Oral Hygiene (QC): 6 (completes in bed/ reclined. Pt completes all tasks with IND.) Toileting Hygiene (QC): 5 (pt able to urinate with assist moving sand block from LLE, pt rolls to R side, utilizes urinal and with s/u, cleanes mario area.) Other Treatments Pt in bed, pt alert/ oriented. Pt educated on OT role/ precautions. Pt agrees to tx, provides hx. Upon ROM screen, pt states pain in chest. Pt encouraged to rest, pain decreases. Distal joints moved with social sciences professor strength similar bilaterally. Pt in bed completes urination/ oral care as outlined. Pt left in bed with all needs met, call light in reach. Education of continued tx to address ADLs/ UE movmeent. Education OT Patient Education: Correct positioning, Exercise program, Modified ADL techniques, Purpose of tx/functional activities, Reviewed precautions, Safety issues Teaching Recipient: Patient Teaching Methods: Demonstration, Discussion Response to Teaching: Verbalize Understanding, Return Demonstration OT Short Term Goals Short Term Goals Time Frame: Feb 06, 2020 Toileting hygiene: 4 Shower/bathe self: 3 Upper body dressin Lower body dressin Putting on/taking off footwear: 4 OT Fci Goals Fci Goals Time Frame: Feb 06, 2020 Eating (QC): 6 Oral Hygiene (QC): 6 Toileting Hygiene (QC): 6 Shower/Bathe Self (QC): 6 Upper Body Dressing (QC): 6 Lower Body Dressing (QC): 6 On/Off Footwear (QC): 6 1=Demonstrate adherence to instructed precautions during ADL tasks. 2=Patient will verbalize/demonstrate understanding of assistive d evices/modifications for ADL. 3=Patient will improve strength/tolerance for activity to enable patient to perform ADL's. OT Education/Plan Problem List/Assessment Assessment: Decreased Activ Tolerance, Decreased UE Strength, Impaired I ADL's, Impaired Self-Care Skills Discharge Recommendations Plan/Recommendations: Continue POC Therapy Discharge Recommendati: Home & Family Equpiment Recommendations-D/C: Rails on Tub/Shower, Bath Chair Treatment Plan/Plan of Care Treatment,Training & Education: Yes Patient would benefit from OT for education, treatment and training to promote independence in ADL's, mobility, safety and/or upper extremity function for ADL's. Plan of Care: ADL Retraining, Concurrent Therapy, Functional Mobility, UE Funct Exercise/Act Treatment Duration: Feb 06, 2020 Frequency: 5 times per week Estimated Hrs Per Day: .25 hour per day Agreement: Yes Rehab Potential: Fair Time/GCodes Start Time: 10:20 Stop Time: 10:37 Total Time Billed (hr/min): 17 Billed Treatment Time ELLI Lorenzo (17) JEFFERY BORJA OTR Jan 23, 2020 11:13
--- NOTE | 2020-01-23 11:14 | CARDIAC CATHETERIZATION ---
DATE OF SERVICE: 01/18/2020 CARDIAC CATHETERIZATION REPORT INDICATION FOR PROCEDURE: The patient is a 59-year-old man, who had an inferior wall myocardial infarction on 01/21/2020 and the right coronary artery was stented by Dr. Nesbitt on that date. His pain improved, but did not subside completely. Today, his pain was considerably worse. Stent thrombosis was a concern. Repeat cardiac catheterization was carried out. Informed consent was obtained. DESCRIPTION OF PROCEDURE: He was brought to the cardiac catheterization laboratory in a fasting state. The left groin was prepared and draped in the usual sterile fashion. We did not use the right groin because there is considerable hematoma from his previous cardiac catheterization in that region. We prepared and draped the left groin. Lidocaine 1% was used for local anesthesia. Modified Seldinger technique was used to advance a 6-Bhutanese sheath in the right femoral artery. We used a 6-Bhutanese JR4 guide catheter to engage the right coronary artery and perform diagnostic coronary angiography. This catheter was removed. Angiography of the left coronary system was carried out using a 6-Bhutanese JL4 catheter. We used a 6-Bhutanese pigtail catheter for left heart catheterization and left ventricular angiography. The pigtail catheter was removed. Angiography of the right femoral artery was carried out through the sheath. Mynx was used to achieve hemostasis. He tolerated the procedure well. HEMODYNAMICS: Left ventricular end-diastolic pressure following coronary angiography was 3 mmHg. There was no significant pressure gradient on pullback across the aortic valve. Ascending aortic pressure was 104/58 with a mean of 68 mmHg. CORONARY ANGIOGRAPHY: Left main coronary artery is free of significant disease. Left anterior descending and left circumflex artery are free of significant disease. Right coronary artery is large and dominant. There is a patent stent in its proximal portion. The stent does not show any thrombosis or stenosis. The right coronary artery is dominant. At the very distal segment of the right coronary artery, there appears to be a small degree of thrombus. Here, the vessel is of extremely small caliber and not amenable to intervention. Flow is seen in all the branches of the right coronary artery. LEFT VENTRICULAR ANGIOGRAPHY: Left ventricular angiography was carried out in the right anterior oblique projection. Global left ventricular systolic function appears mildly to moderately impaired. There is hypokinesis of the diaphragmatic wall of the left ventricle. Left ventricular ejection fraction is approximately 45%. CONCLUSIONS: 1. Patent proximal stent in the right coronary that is known to be Liliana 4 x 28 mm that was placed on 01-21-20. The very distal portion of the right coronary has minimal amount of thrombus and the vessel here is of extremely small caliber and not amenable to intervention. Left coronary system does not indicate any significant disease. 2. Low left ventricular end-diastolic pressure (3 mmHg). 3. Oauw-qq-lyvshxgt impairment of global left ventricular systolic function with an ejection fraction approximately 45% and with hypokinesis of the diaphragmatic wall of the left ventricle. DISCUSSION AND RECOMMENDATIONS: Based on results of the study, it appears appropriate to continue a conservative approach. We are continuing dual antiplatelet therapy. He is also on chronic rivaroxaban anticoagulation for deep venous thrombosis prophylaxis and for his recent diagnosis of COVID-19. This medication is being continued. Further recommendation will be based on his hospital course. Job ID: [id number] DocumentID: [id number] Dictated Date: 01/23/2020 10:34:18 Vp Legal Affairs Date: 01/23/2020 11:13:44 Dictated By: AURE MARTI MD, MA, FACP, FACC, MTDD
[2020-01-23] MEDS: LACTATED RINGERS 1,000 ML IV SCH (11:31)
[2020-01-23] MEDS: NS IV 1000 ML 1,000 ML IV SCH ×2 (11:38→17:40)
--- NOTE | 2020-01-23 12:05 | Physical Therapy Progress Note ---
Therapy Progress Note Patient had returned to heart cath this a.m. and returned to room. PT to hold treatment until a.m. per RN. NATALIE RAYA PT Jan 23, 2020 12:05
[2020-01-23] MEDS: RIVAROXABAN 20 MG TABLET (XARELTO) PO SCH (16:44)
[2020-01-24] VITALS (21 sets, daily range): BP systolic 67–127; BP diastolic 50–86
[2020-01-24] MEDS: LACTATED RINGERS 1,000 ML IV SCH ×2 (00:08→13:51)
[2020-01-24] MEDS: CEFEPIME 1,000 MG/SWFI 10 ML IV PUSH IV SCH ×8 (00:08→17:05)
[2020-01-24] MEDS: NS IV 1000 ML 1,000 ML IV SCH ×2 (00:11→03:12)
[2020-01-24 03:46] LABS: BASOPHILS % (AUTO) 0 % (0-10); EOSINOPHILS % (AUTO) 0 % (0-10); HEMATOCRIT 30 % (40-54); LYMPHOCYTES % (AUTO) 10 % (12-44); MEAN CORPUSCULAR HEMOGLOBIN 29 pg (25-34); MEAN CORPUSCULAR HGB CONC 33 g/dL (32-36); MEAN CORPUSCULAR VOLUME 89 fL (80-99); MEAN PLATELET VOLUME 10.5 fL (9.0-12.2); MONOCYTES # (AUTO) 0.8 10^3/uL (0.0-1.0); MONOCYTES % (AUTO) 9 % (0-12); NEUTROPHILS # (AUTO) 7.7 10^3/uL (1.8-7.8); NEUTROPHILS % (AUTO) 80 % (42-75); PLATELET COUNT 301 10^3/uL (130-400); WHITE BLOOD COUNT 9.5 10^3/uL (4.3-11.0)
[2020-01-24 04:06] LABS: CHLORIDE 103 MMOL/L (98-107); POTASSIUM 5.2 MMOL/L (3.6-5.0); SODIUM 135 MMOL/L (135-145)
[2020-01-24 04:08] LABS: CALCIUM 8.2 MG/DL (8.5-10.1); GLUCOSE 119 MG/DL (70-105)
[2020-01-24 04:10] LABS: CARBON DIOXIDE 22 MMOL/L (21-32)
[2020-01-24 04:12] LABS: CREATININE SERUM 1.11 MG/DL (0.60-1.30); GFR ESTIMATED > 60; PHOSPHORUS 2.5 MG/DL (2.3-4.7)
[2020-01-24 04:13] LABS: BUN/CREATININE RATIO 33
[2020-01-24 04:14] LABS: MAGNESIUM 2.2 MG/DL (1.6-2.4)
--- NOTE | 2020-01-24 04:36 | Pulmonary Progress Note ---
Subjective Time Seen by a Provider: 04:31 Subjective/Events-last exam Pt is requiring highflow vapotherm. Sepsis Event Evaluation Height, Weight, BMI Height: 5'8" Weight: 184lbs. oz. 83.826109nv; 29.00 BMI Method:Stated Exam Exam Vital Signs Date Time Temp Pulse Resp B/P (MAP) Pulse Ox O2 Delivery O2 Flow Rate FiO2 01/24/20 04:08 80 91 Vapotherm 20.00 45.00 01/24/20 04:00 81 93/63 (73) 89 Vapotherm 20.00 50.00 01/24/20 03:00 82 105/69 (81) 92 Vapotherm 20.00 50.00 01/24/20 02:10 95 Vapotherm 20.00 50 01/24/20 02:00 83 115/75 (88) 93 Vapotherm 20.00 50.00 01/24/20 01:00 83 01/24/20 01:00 83 105/69 (81) 93 Vapotherm 20.00 50.00 01/24/20 00:17 35.6 93 Vapotherm 20.00 50.00 01/24/20 00:09 90 95/62 (73) 93 Vapotherm 20.00 60.00 01/24/20 00:00 93 Vapotherm 20.00 50 01/23/20 23:06 96 109/73 (85) 91 Vapotherm 20.00 60.00 01/23/20 22:00 85 26 94/63 (73) 96 Vapotherm 20.00 60.00 01/23/20 21:39 81 33 97 Vapotherm 20.00 60.00 01/23/20 21:37 99 Vapotherm 20.00 70 01/23/20 21:13 35.8 91 22 103/68 (80) 93 Vapotherm 20.00 70.00 01/23/20 21:00 86 21 103/68 (80) 95 Vapotherm 30.00 80.00 01/23/20 20:00 81 26 97/50 (66) 94 Vapotherm 30.00 80.00 01/23/20 20:00 96 Vapotherm 25.00 70 01/23/20 19:00 96 01/23/20 19:00 96 29 97/72 (80) 96 Vapotherm 30.00 80.00 01/23/20 18:20 94 Vapotherm 20.00 70 01/23/20 18:00 86 25 107/62 (77) 97 Vapotherm 30.00 80.00 01/23/20 17:00 81 27 84/61 (69) 93 Vapotherm 30.00 80.00 01/23/20 16:00 94 Vapotherm 25.00 70 01/23/20 16:00 83 44 103/64 (77) 96 Vapotherm 30.00 80.00 01/23/20 15:00 88 22 86/54 (65) 97 Vapotherm 30.00 80.00 01/23/20 14:00 76 16 88/58 (68) 95 Vapotherm 30.00 80.00 01/23/20 13:00 92 28 94/62 (73) 94 Vapotherm 30.00 80.00 01/23/20 12:50 90 01/23/20 12:00 93 Vapotherm 20.00 70 01/23/20 12:00 78 29 106/76 (86) 92 Vapotherm 30.00 80.00 01/23/20 11:00 70 18 99/63 (75) 96 Vapotherm 30.00 80.00 01/23/20 10:10 94 Vapotherm 25.00 70 01/23/20 10:00 104/65 (78) Vapotherm 30.00 80.00 01/23/20 08:47 35.8 105/67 (80) Vapotherm 25.00 70.00 01/23/20 08:00 91 Vapotherm 25.00 70 01/23/20 08:00 70 26 105/67 (80) 93 Vapotherm 30.00 80.00 01/23/20 07:22 95 Vapotherm 30.00 80 01/23/20 07:00 81 15 85/63 (70) 94 Vapotherm 30.00 80.00 01/23/20 06:44 76 01/23/20 06:00 73 18 96/70 (79) 93 Vapotherm 30.00 80.00 01/23/20 05:00 58 18 94/69 (77) 95 Vapotherm 30.00 80.00 I & O 01/24/20 07:00 Intake Total 1125 ml Output Total 1500 ml Balance -375 ml Height & Weight Height: 5'8" Weight: 184lbs. oz. 83.158408ux; 29.00 BMI Method:Stated General Appearance: No Apparent Distress, WD/WN HEENT: PERRL/EOMI, Normal ENT Inspection, Pharynx Normal Neck: Normal Inspection, Supple Respiratory: No Rhonci, No Wheezing; Other (on Vapotherm ) Cardiovascular: Regular Rate, Rhythm, No Murmur Capillary Refill: Less Than 3 Seconds Gastrointestinal: normal bowel sounds, non tender, soft, no organomegaly Extremity: No Calf Tenderness, No Pedal Edema Neurologic/Psychiatric: Alert, Oriented x3 Skin: Normal Color, Warm/Dry Results Lab Laboratory Tests 01/23/20 02:49 01/24/20 02:50 Assessment/Plan Assessment/Plan Acute COVID 19 Pneumonia -Start Vapotherm -BiPAP HS and PRN -Dx 01/04 - 14 days from dx to admission -Pt is outside of window for Remdisiever - Convalescent plasma 1 out 2 given - Decadron -- increase to 10mg IV daily x 2 doses then back to 6mg. -check Ferritin Acute secondary PNA -Check urine legionella and strep ag -MRSA swab -Check Influenza - Cefepime and azithromycin -Kay cultures -Currently LR at 75cc/hr Hyperkalemia with worsening renal failure -Give lasix 40mg IV x 1 Hx of DEISY -Uses CPAP with 2 liters of oxygen at home DVT/GI ppx -Theraputic dose Lovenox and protonix -Pt has hx of DVT with venacava filter. GEOFF CURRIE DO Jan 24, 2020 04:36
[2020-01-24] MEDS ORDERED: FUROSEMIDE 40 MG/4 ML INJ (LASIX) IVP ONE (04:45)
[2020-01-24] MEDS: RT-ALBUTEROL INHALER HFA (VENTOLIN HFA) 18 GM IH SCH ×4 (07:58→18:44)
[2020-01-24] MEDS: VITAMIN D3 125 MCG (5,000 UNITS) CAPSULE PO SCH (08:32)
[2020-01-24] MEDS: PANTOPRAZOLE 40 MG (PROTONIX) TAB PO SCH (08:32)
[2020-01-24] MEDS: ASPIRIN 81 MG CHEW (CHILDREN'S ASA) PO SCH (08:33)
[2020-01-24] MEDS: CLOPIDOGREL 75 MG (PLAVIX) TABLET PO SCH (08:33)
--- NOTE | 2020-01-24 11:42 | Progress Note - Cardiology ---
Cardiology SOAP Progress Note Subjective: Feels better today No cp Shortness of breath improving No palp or syncope Gen weakness present Denies focal weakness Denies n/v/d Objective: I&O/Vital Signs 01/24/20 01/24/20 01/24/20 01/24/20 00:00 00:09 00:17 01:00 Temp 35.6 Pulse 90 83 B/P (MAP) 95/62 (73) 105/69 (81) Pulse Ox 93 93 93 93 O2 Delivery Vapotherm Vapotherm Vapotherm Vapotherm O2 Flow Rate 20.00 20.00 20.00 20.00 60.00 50.00 50.00 FiO2 50 01/24/20 01/24/20 01/24/20 01/24/20 01:00 02:00 02:10 03:00 Pulse 83 83 82 B/P (MAP) 115/75 (88) 105/69 (81) Pulse Ox 93 95 92 O2 Delivery Vapotherm Vapotherm Vapotherm O2 Flow Rate 20.00 20.00 20.00 50.00 50.00 FiO2 50 01/24/20 01/24/20 01/24/20 01/24/20 04:00 04:00 04:08 05:00 Pulse 81 80 88 B/P (MAP) 93/63 (73) 112/72 (85) Pulse Ox 89 92 91 90 O2 Delivery Vapotherm Vapotherm Vapotherm Vapotherm O2 Flow Rate 20.00 20.00 20.00 20.00 50.00 45.00 45.00 FiO2 45 01/24/20 01/24/20 01/24/20 01/24/20 06:00 06:44 07:58 08:00 Pulse 74 83 B/P (MAP) 95/68 (77) Pulse Ox 92 93 92 O2 Delivery Vapotherm Vapotherm Vapotherm O2 Flow Rate 20.00 30.00 30.00 45.00 FiO2 65 65 01/24/20 08:42 Temp 35.6 O2 Flow Rate 30.00 55.00 01/24/20 00:00 Intake Total 925 ml Output Total 1150 ml Balance -225 ml Weight (Pounds): 184 Weight (Calculated Kilograms): 83.883120 Constitutional: AAO x 3, well-developed, well-nourished Respiratory: No accessory muscle use; other (good bilat air entry, diminished at the bases) Cardiovascular: regular rate-rhythm, S1 and S2, systolic murmur (soft TYSON at card base) Gastrointestional: No tender; soft; No guarding; audible bowel sounds Extremities: No clubbing, No cyanosis Neurologic/Psychiatric: oriented x 3, other (moves all limbs equally) Skin: No rash on exposed areas, No ulcerations on exposed areas Results/Procedures: Labs Laboratory Tests 01/24/20 02:50: White Blood Count 9.5, Red Blood Count 3.41L, Hemoglobin 10.0L, Hematocrit 30L, Mean Corpuscular Volume 89, Mean Corpuscular Hemoglobin 29, Mean Corpuscular Hemoglobin Concent 33, Red Cell Distribution Width 15.5H, Platelet Count 301, Mean Platelet Volume 10.5, Immature Granulocyte % (Auto) 1, Neutrophils (%) (Auto) 80H, Lymphocytes (%) (Auto) 10L, Monocytes (%) (Auto) 9, Eosinophils (%) (Auto) 0, Basophils (%) (Auto) 0, Neutrophils # (Auto) 7.7, Lymphocytes # (Auto) 1.0, Monocytes # (Auto) 0.8, Eosinophils # (Auto) 0.0, Basophils # (Auto) 0.0, Immature Granulocyte # (Auto) 0.1, Sodium Level 135, Potassium Level 5.2H, Chloride Level 103, Carbon Dioxide Level 22, Anion Gap 10, Blood Urea Nitrogen 37H, Creatinine 1.11, Estimat Glomerular Filtration Rate > 60, BUN/Creatinine Ratio 33, Glucose Level 119H, Calcium Level 8.2L, Phosphorus Level 2.5, Magnesium Level 2.2 Microbiology 01/18/20 MRSA Screen - Final, Complete MRSA not isolated 01/17/20 Blood Culture - Final, Complete No growth Laboratory Tests 01/23/20 02:49 01/24/20 02:50 A/P: Assessment: Acute ST elevation myocardial, occurred while in the hospital, treated on 01/21/20 with RCA stenting with Liliana 4 x 28 mm stent. Repeat cath of 01/23/20 (for continuing chest pain) shows patent proximal stent in a large, dominant RCA the very distal portion of which appear to have a minimal amount of thrombus. Here the vessel is of extremely small caliber and not amenable to intervention. Left coronary system does not indicate any significant disease. LVEDP 3 mmHg. LVEF approx 45% and hypokinesis of the diaphragmatic wall of the LV R groin hematoma after cath of 01/21/20, stable. 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 Hypertension, by history WATSON-1, probably related to intravascular vol depletion Hyperlipidemia, by history Plan: * Continue treatment with ASA, clopidogrel, and rivaroxaban at this time * Continue statin * Relatively low bp does not permit beta-negin at this time * Monitor labs AURE MARTI [facility] Jan 24, 2020 11:42
--- NOTE | 2020-01-24 11:58 | Occupational Ther Daily Note ---
OT Current Status-Daily Note Subjective Pt alert, sitting up in bed. Pt agrees to therapy. No c/o pain at this time. Mental Status/Objective Patient Orientation: Person, Place, Time, Mumbles Attachments: IV, Oxygen (vapotherm), Telemetry ADL-Treatment Pt able to don/doff socks and shoes after set up by self. Pt's O2 levels would dip to 89% then would raise quickly to above 91%. Pt able to complete bed mobility independent and SBA for transfer from bed to recliner with assist to manipulate tubing. Co-treat with PT due to respiratory issues and decreased activity tolerance for functional tasks. After session, pt sitting in recliner with call light/phone in reach. All needs met in room. Therapy Code Descriptions/Definitions Functional [place] Measure: 0=Not Assessed/NA 4=Minimal Assistance 1=Total Assistance 5=Supervision or Setup 2=Maximal Assistance 6=Modified [place] 3=Moderate Assistance 7=Complete IndependenceSCALE: Activities may be completed with or without assistive devices. 1-Vkrmsyjjat-uleogao completes the activity by him/herself with no assistance from a helper. 5-Set-up or Clean-up Assistance-helper sets up or cleans up; patient completes activity. [place] assists only prior to or following the activity. 4-Supervision or Touching Assistance-helper provides verbal cues and/or touching/steadying and/or contact guard assistance as patient completes activity. Assistance may be provided throughout the activity or intermittently. 3-Partial/Moderate Assistance-helper does LESS THAN HALF the effort. [place] lifts, holds or supports trunk or limbs, but provides less than half the effort. 2-Substantial/Maximal Assistance-helper does MORE THAN HALF the effort. [place] lifts or holds trunk or limbs and provides more than half the effort. 6-Clxeotevu-ozgnnd does ALL the effort. Patient does none of the effort to complete the activity. Or, the assistance of 2 or more helpers is required for the patient to complete the activity. If activity was not attempted, code reason: 7-Patient Refused. 9-Not Applicable-not attempted and the patient did not perform the activity before the current illness, exacerbation or injury. 10-Not Attempted due to Environmental Limitations-(lack of equipment, weather restraints, etc.). 88-Not Attempted due to Medical Conditions or Safety Concerns. Eating (QC): 6 (Pt able to open ice cream container and use regular utensils to eat.) On/Off Footwear: 5 OT Short Term Goals Short Term Goals Time Frame: Feb 06, 2020 Toileting hygiene: 4 Shower/bathe self: 3 Upper body dressin Lower body dressin Putting on/taking off footwear: 4 OT Detention Goals Lamps Tester And Inspector Goals Time Frame: Feb 06, 2020 Eating (QC): 6 Oral Hygiene (QC): 6 Toileting Hygiene (QC): 6 Shower/Bathe Self (QC): 6 Upper Body Dressing (QC): 6 Lower Body Dressing (QC): 6 On/Off Footwear (QC): 6 1=Demonstrate adherence to instructed precautions during ADL tasks. 2=Patient will verbalize/demonstrate understanding of assistive devices/modifications for ADL. 3=Patient will improve strength/tolerance for activity to enable patient to per form ADL's. OT Education/Plan Problem List/Assessment Assessment: Decreased Activ Tolerance, Impaired Self-Care Skills Discharge Recommendations Plan/Recommendations: Continue POC Treatment Plan/Plan of Care Patient would benefit from OT for education, treatment and training to promote independence in ADL's, mobility, safety and/or upper extremity function for ADL's. Plan of Care: ADL Retraining, Concurrent Therapy, Functional Mobility, UE Funct Exercise/Act Treatment Duration: Feb 06, 2020 Frequency: 5 times per week Estimated Hrs Per Day: .25 hour per day Agreement: Yes Rehab Potential: Fair Time/GCodes Start Time: 10:30 Stop Time: 10:40 Total Time Billed (hr/min): 10 Billed Treatment Time 1 visit-FA 1 (10 min) JIM ROD Jan 24, 2020 11:58
--- NOTE | 2020-01-24 13:14 | Physical Therapy Evaluation ---
PT Evaluation-General Medical Diagnosis Admission Date Jan 18, 2020 at 00:05 Medical Diagnosis: COVID+ Onset Date: Jan 05, 2020 Therapy Diagnosis Therapy Diagnosis: debility Height/Weight Height (Feet): 5 Height (Inches): 8 Weight (Pounds): 184 Precautions Precautions/Isolations: Airborne Isolation Referral Physician: Gasper Reason for Referral: Evaluation/Treatment Medical History Pertinent Medical History: Atrial Fib, CAD, HTN, PA Additional Medical History DVT's, multiple myeloma Current History ER from home/s/p heart cath x 2 Reviewed History: Yes Social History Home: Single Level Current Living Status: Spouse Entry Into Home: Stairs With Railing PT Steps Into Home: 3 Prior Prior Level of Function SCALE: Activities may be completed with or without assistive devices. 8-Ancyjxlzqi-dwsbszh completes the activity by him/herself with no assistance from a helper. 5-Set-up or Clean-up Assistance-helper sets up or cleans up; patient completes activity. Xenia assists only prior to or following the activity. 4-Supervision or Touching Assistance-helper provides verbal cues and/or touching/steadying and/or contact guard assistance as patient completes activity. Assistance may be provided throughout the activity or intermittently. 3-Partial/Moderate Assistance-helper does LESS THAN HALF the effort. Xenia lifts, holds or supports trunk or limbs, but provides less than half the effort. 2-Substantial/Maximal Assistance-helper does MORE THAN HALF the effort. Xenia lifts or holds trunk or limbs and provides more than half the effort. 5-Czkqtdioi-hgcolx does ALL the effort. Patient does none of the effort to complete the activity. Or, the assistance of 2 or more helpers is required for the patient to complete the activity. If activity was not attempted, code reason: 7-Patient Refused. 9-Not Applicable-not attempted and the patient did not perform the activity be fore the current illness, exacerbation or injury. 10-Not Attempted due to Environmental Limitations-(lack of equipment, weather restraints, etc.). 88-Not Attempted due to Medical Conditions or Safety Concerns. Bed Mobility: 6 Transfers (B,C,W/C): 6 Gait: 6 Stairs: 6 Indoor Mobility (Ambulation): Independent Stairs: Independent Prior Devices Use: None works at [employer] PT Evaluation-Current Subjective Patient agrees to PT. Pain Numeric Pain Scale: 0-No Pain Location: No Pain Reported Objective Patient Orientation: Normal For Age Attachments: Oxygen (vapotherm), IV ROM/Strength ROM Lower Extremities bilateral LE WFL Strength Lower Extremities 4/5 grossly bilateral LE Integumentary/Posture Integumentary refer to nursing notes Bowel Incontinence: No Bladder Incontinence: No Posture WFL Neuromuscular (Tone, Coordination, Reflexes) grossly intact Sensory Vision: Functional Hearing: Impaired Hand Dominance: Right Transfers Roll Left to Right (QC): 6 Lying to Sitting/Side of Bed(Q: 6 Sit to Stand (QC): 5 Chair/Yqu-tx-Nytmj Xfer(QC): 5 Gait Does the Patient Walk?: Yes Mode of Locomotion: Walk Anticipated Mode of Locomotion: Walk Gait Assistive Device: None Comments/Gait Description patient currently limited due to Vapotherm Balance Sitting Static: Normal Sitting Dynamic: Normal Standing Static: Normal Standing Dynamic: Normal Treatment Pt's O2 levels would dip to 89% then would raise quickly to above 91%. Pt able to complete bed mobility independent and SBA for transfer from bed to recliner with assist to manipulate tubing. Co-treat with PT due to respiratory issues and decreased activity tolerance for functional tasks. After session, pt sitting in recliner with call light/phone in reach. All needs met in room Assessment/Needs 59 y.o. male, will be seen short term by skilled PT to issue HEP and begin ambulation. Patient is currently requiring Vapotherm for O2 need. PT to issue HEP next session Rehab Potential: Fair PT Skilled Nursing Goals Skilled Nursing Goals PT Skilled Nursing Goals Time Frame: Jan 27, 2020 Roll Left & Right (QC): 6 Sit to Lying (QC): 6 Lying-Sitting on Side/Bed(QC): 6 Sit to Stand (QC): 6 Chair/Yif-ar-Jywqm Xfer(QC): 6 Toilet Transfer (QC): 6 Does the Patient Walk: Yes Walk 10 feet (QC): 6 Walk 50ft with 2 Turns (QC): 6 Walk 150 ft (QC): 6 PT Plan Problem List Problem List: Functional Strength Treatment/Plan Treatment Plan: Continue Plan of Care Treatment Plan: Education, Functional Activity Reggie, Functional Strength, Gait, Safety, Therapeutic Exercise (HEP), Transfers Treatment Duration: Jan 27, 2020 Frequency: 4 times per week Estimated Hrs Per Day: .25 hour per day Patient and/or Family Agrees t: Yes Time/GCodes Time In: 1030 Time Out: 1042 Total Billed Treatment Time: 12 Total Billed Treatment 1 visit EVModC 12 min NATALIE RAYA PT Jan 24, 2020 13:14
[2020-01-24] MEDS: RIVAROXABAN 20 MG TABLET (XARELTO) PO SCH (17:05)
[2020-01-24] MEDS ORDERED: CEFEPIME 1 GM (MAXIPIME) VIAL ONE (23:53)
[2020-01-24] MEDS ORDERED: WATER (STERILE) FOR INJECTION 10 ML ONE (23:53)
[2020-01-25] VITALS (9 sets, daily range): BP systolic 96–133; BP diastolic 61–76
[2020-01-25] MEDS: CEFEPIME 1,000 MG/SWFI 10 ML IV PUSH IV SCH ×8 (00:02→21:47)
[2020-01-25] MEDS: LACTATED RINGERS 1,000 ML IV SCH (03:42)
[2020-01-25 03:50] LABS: BASOPHILS % (AUTO) 0 % (0-10); EOSINOPHILS % (AUTO) 0 % (0-10); HEMATOCRIT 28 % (40-54); HEMOGLOBIN 9.6 g/dL (13.3-17.7); LYMPHOCYTES # (AUTO) 0.8 10^3/uL (1.0-4.0); LYMPHOCYTES % (AUTO) 8 % (12-44); MEAN CORPUSCULAR HEMOGLOBIN 30 pg (25-34); MEAN CORPUSCULAR HGB CONC 34 g/dL (32-36); MEAN CORPUSCULAR VOLUME 89 fL (80-99); MEAN PLATELET VOLUME 10.3 fL (9.0-12.2); MONOCYTES # (AUTO) 0.9 10^3/uL (0.0-1.0); MONOCYTES % (AUTO) 9 % (0-12); NEUTROPHILS # (AUTO) 8.2 10^3/uL (1.8-7.8); NEUTROPHILS % (AUTO) 83 % (42-75); PLATELET COUNT 320 10^3/uL (130-400)
[2020-01-25 04:15] LABS: BUN/CREATININE RATIO 34; CALCIUM 8.4 MG/DL (8.5-10.1); CARBON DIOXIDE 23 MMOL/L (21-32); CHLORIDE 103 MMOL/L (98-107); CREATININE SERUM 1.19 MG/DL (0.60-1.30); GFR ESTIMATED > 60; GLUCOSE 166 MG/DL (70-105); MAGNESIUM 2.3 MG/DL (1.6-2.4); PHOSPHORUS 2.9 MG/DL (2.3-4.7); POTASSIUM 5.2 MMOL/L (3.6-5.0); SODIUM 134 MMOL/L (135-145)
[2020-01-25] MEDS ORDERED: CEFEPIME 1 GM (MAXIPIME) VIAL ONE ×2 (05:00→21:31)
[2020-01-25] MEDS ORDERED: WATER (STERILE) FOR INJECTION 10 ML ONE ×2 (05:00→21:31)
[2020-01-25] MEDS ORDERED: FUROSEMIDE 40 MG/4 ML INJ (LASIX) IVP ONE (05:15)
--- NOTE | 2020-01-25 05:16 | Pulmonary Progress Note ---
Subjective Time Seen by a Provider: 05:16 Subjective/Events-last exam Pt has improving oxygen requirements. Sepsis Event Evaluation Height, Weight, BMI Height: 5'8" Weight: 184lbs. oz. 83.161716gx; 29.00 BMI Method:Stated Exam Exam Vital Signs Date Time Temp Pulse Resp B/P (MAP) Pulse Ox O2 Delivery O2 Flow Rate FiO2 01/25/20 04:18 94 Vapotherm 30.00 55 01/25/20 02:50 94 Vapotherm 30.00 50 01/25/20 01:00 80 01/25/20 00:20 94 Vapotherm 30.00 55 01/25/20 00:08 85 16 101/67 (78) 94 Vapotherm 30.00 55.00 01/24/20 20:12 94 Vapotherm 30.00 65 01/24/20 19:16 35.8 88 19 67/71 (70) 94 Vapotherm 30.00 55.00 01/24/20 19:14 92 16 117/67 (84) 94 Vapotherm 30.00 55.00 01/24/20 19:00 90 01/24/20 19:00 90 22 106/60 (75) 93 Vapotherm 30.00 55.00 01/24/20 18:45 95 Vapotherm 30.00 60 01/24/20 18:00 72 23 114/71 (85) 99 Vapotherm 30.00 55.00 01/24/20 17:00 74 14 100/50 (67) 95 Vapotherm 30.00 55.00 01/24/20 16:00 92 Vapotherm 30.00 65 01/24/20 15:29 35.7 76 19 127/74 (91) 93 Vapotherm 30.00 65.00 01/24/20 15:28 Vapotherm 30.00 65.00 01/24/20 15:21 98 Vapotherm 30.00 80 01/24/20 15:00 86 127/74 (91) 97 Vapotherm 30.00 55.00 01/24/20 14:00 92 95 Vapotherm 30.00 55.00 01/24/20 13:00 93 106/67 (80) 98 Vapotherm 30.00 55.00 01/24/20 12:43 101 01/24/20 12:00 92 Vapotherm 30.00 65 01/24/20 12:00 102 94/64 (74) 92 Vapotherm 30.00 55.00 01/24/20 11:36 97 Vapotherm 30.00 80 01/24/20 11:00 102 94/64 (74) 92 Vapotherm 30.00 55.00 01/24/20 10:00 75 98/63 (75) 91 Vapotherm 30.00 55.00 01/24/20 09:00 96 92/63 (73) 89 Vapotherm 30.00 55.00 01/24/20 08:42 35.6 30.00 55.00 01/24/20 08:00 99 121/86 (98) 91 Vapotherm 20.00 45.00 01/24/20 08:00 92 Vapotherm 30.00 65 01/24/20 07:58 93 Vapotherm 30.00 65 01/24/20 07:00 93 110/79 (89) 93 Vapotherm 20.00 45.00 01/24/20 06:44 83 01/24/20 06:00 74 95/68 (77) 92 Vapotherm 20.00 45.00 I & O 01/25/20 07:00 Intake Total 2435 ml Output Total 2025 ml Balance 410 ml Height & Weight Height: 5'8" Weight: 184lbs. oz. 83.587725ls; 29.00 BMI Method:Stated General Appearance: No Apparent Distress, WD/WN HEENT: PERRL/EOMI, Normal ENT Inspection, Pharynx Normal Neck: Normal Inspection, Supple Respiratory: No Rhonci, No Wheezing; Other (on Vapotherm ) Cardiovascular: Regular Rate, Rhythm, No Murmur Capillary Refill: Less Than 3 Seconds Gastrointestinal: normal bowel sounds, non tender, soft, no organomegaly Extremity: No Calf Tenderness, No Pedal Edema Neurologic/Psychiatric: Alert, Oriented x3 Skin: Normal Color, Warm/Dry Results Lab Laboratory Tests 01/24/20 02:50 01/25/20 03:25 Assessment/Plan Assessment/Plan Acute COVID 19 Pneumonia -Start Vapotherm - Titrate oxygen down -BiPAP HS and PRN -Dx 01/04 - 14 days from dx to admission -Pt is outside of window for Remdisiever - Convalescent plasma 1 out 2 given - Decadron -- increase to 10mg IV daily x 2 doses then back to 6mg. -check Ferritin Acute secondary PNA -Check urine legionella and strep ag -MRSA swab -Check Influenza - Cefepime and azithromycin -Kay cultures -Currently LR at 75cc/hr Hyperkalemia with worsening renal failure -Give lasix 40mg IV x 1 Hx of DEISY -Uses CPAP with 2 liters of oxygen at home DVT/GI ppx -Theraputic dose Lovenox and protonix -Pt has hx of DVT with venacava filter. I called family and gave them a complete medical update. I answered all of their questions and concerns to the best of my ability. GEOFF CURRIE DO Jan 25, 2020 05:16
[2020-01-25] MEDS: RT-ALBUTEROL INHALER HFA (VENTOLIN HFA) 18 GM IH SCH ×4 (06:29→20:13)
[2020-01-25] MEDS: CLOPIDOGREL 75 MG (PLAVIX) TABLET PO SCH (08:23)
[2020-01-25] MEDS: VITAMIN D3 125 MCG (5,000 UNITS) CAPSULE PO SCH (08:23)
[2020-01-25] MEDS: PANTOPRAZOLE 40 MG (PROTONIX) TAB PO SCH (08:23)
[2020-01-25] MEDS: ASPIRIN 81 MG CHEW (CHILDREN'S ASA) PO SCH (08:23)
--- NOTE | 2020-01-25 08:48 | Progress Note - Cardiology ---
Cardiology SOAP Progress Note Subjective: Talkative this morning. No c/o CP. Feels breathing is improving. States he feels much better today. Objective: I&O/Vital Signs 01/25/20 01/25/20 01/25/20 01/25/20 06:29 06:41 07:40 10:46 Temp 36.8 36.2 Pulse 74 92 83 Resp 18 18 B/P (MAP) 99/62 (74) 110/68 Pulse Ox 95 87 94 O2 Delivery Vapotherm Vapotherm Vapotherm O2 Flow Rate 30.00 30.00 30.00 55.00 FiO2 50 55 01/25/20 01/25/20 01/25/20 01/25/20 11:04 11:09 11:44 11:45 Temp 36.4 36.2 Pulse 78 79 Resp 18 16 B/P (MAP) 133/68 96/61 (73) Pulse Ox 94 96 92 O2 Delivery Vapotherm Vapotherm Vapotherm O2 Flow Rate 30.00 30.00 30.00 55.00 FiO2 55 50 01/25/20 01/25/20 01/25/20 12:58 14:15 15:17 Pulse 89 77 Resp 16 B/P (MAP) 116/69 Pulse Ox 94 99 O2 Delivery Vapotherm High Flow N/C O2 Flow Rate 30.00 10.00 FiO2 50 01/25/20 00:00 Intake Total 1115 ml Output Total 850 ml Balance 265 ml Weight (Pounds): 184 Weight (Calculated Kilograms): 83.562134 Constitutional: AAO x 3, well-developed, well-nourished Respiratory: No accessory muscle use; other (good bilat air entry, diminished at the bases) Cardiovascular: regular rate-rhythm, S1 and S2, systolic murmur (soft TYSON at card base) Gastrointestional: No tender; soft; No guarding; audible bowel sounds Extremities: No clubbing, No cyanosis Neurologic/Psychiatric: oriented x 3, other (moves all limbs equally) Skin: No rash on exposed areas, No ulcerations on exposed areas Results/Procedures: Labs Laboratory Tests 01/25/20 03:25: White Blood Count 10.0, Red Blood Count 3.21L, Hemoglobin 9.6L, Hematocrit 28L, Mean Corpuscular Volume 89, Mean Corpuscular Hemoglobin 30, Mean Corpuscular Hemoglobin Concent 34, Red Cell Distribution Width 15.3H, Platelet Count 320, Mean Platelet Volume 10.3, Immature Granulocyte % (Auto) 1, Neutrophils (%) (Auto) 83H, Lymphocytes (%) (Auto) 8L, Monocytes (%) (Auto) 9, Eosinophils (%) (Auto) 0, Basophils (%) (Auto) 0, Neutrophils # (Auto) 8.2H, Lymphocytes # (Auto) 0.8L, Monocytes # (Auto) 0.9, Eosinophils # (Auto) 0.0, Basophils # (Auto) 0.0, Immature Granulocyte # (Auto) 0.1, Sodium Level 134L, Potassium Level 5.2H, Chloride Level 103, Carbon Dioxide Level 23, Anion Gap 8, Blood Urea Nitrogen 41H, Creatinine 1.19, Estimat Glomerular Filtration Rate > 60, BUN/Creatinine Ratio 34, Glucose Level 166H, Calcium Level 8.4L, Phosphorus Level 2.9, Magnesium Level 2.3 Microbiology 01/18/20 MRSA Screen - Final, Complete MRSA not isolated 01/17/20 Blood Culture - Final, Complete No growth Laboratory Tests 01/24/20 02:50 01/25/20 03:25 A/P: Assessment: No recurrence of chest pain Acute ST elevation myocardial, occurred while in the hospital, treated on 01/21/20 with RCA stenting with Liliana 4 x 28 mm stent. Repeat cath of 01/23/20 (for continuing chest pain) shows patent proximal stent in a large, dominant RCA the very distal portion of which appear to have a minimal amount of thrombus. Here the vessel is of extremely small caliber and not amenable to intervention. Left coronary system does not indicate any significant disease. LVEDP 3 mmHg. LVEF approx 45% and hypokinesis of the diaphragmatic wall of the LV R groin hematoma after cath of 01/21/20, stable. 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 Hypertension, by history WATSON-1, probably related to intravascular vol depletion Hyperlipidemia, by history Plan: * Continue treatment with ASA, clopidogrel, and rivaroxaban at this time - discussed rationale of medications with pt, verbalizes understanding * Continue statin * Relatively low bp does not permit beta-negin at this time * Monitor labs * Mild hyperkalemia. Continue to monitor closely Physician Assessment Physician Assessment The above note represents the mutual evaluation of the patient by Nell Brennan APRN and me I have updated the note in italics JADA BRENNAN [facility] Jan 25, 2020 08:48 AURE MARTI MD [facility] Jan 25, 2020 16:54
[2020-01-25] MEDS ORDERED: NS (IVPB) 250 ML ONE (10:28)
--- NOTE | 2020-01-25 10:52 | NUR ---
250mL OF NORMAL SALINE PULLED FOR ADMINISTERING PLASMA.
--- NOTE | 2020-01-25 13:38 | Occ Therapy Progress Note ---
Therapy Progress Note OT attempted treatment this date. Pt. asleep. Wakes up and states that he did not sleep at all last night. Requests to be left to sleep now. Pt. reports that he has been getting up and ambulating into bathroom. States that he has been out of bed several times this morning. Pt. does not require anything further at this time. Will let pt. sleep and attempt back in a.m. 1, visit x 5minutes [id number] RICHI SALINAS OT Jan 25, 2020 13:38
--- NOTE | 2020-01-25 14:43 | Physical Therapy Daily Note ---
PT Daily Note-Current Subjective Pt laying Supine in bed with HOB raised. Pt reports feeling good. Able to TF to standing and use BR. Pt reports feeling like he has lost strength but it is improving again. Pain Location: No Pain Reported Mental Status Patient Orientation: Person, Place, Time, Situation Attachments: Oxygen Transfers SCALE: Activities may be completed with or without assistive devices. 1-Smemzphklo-igsogay completes the activity by him/herself with no assistance from a helper. 5-Set-up or Clean-up Assistance-helper sets up or cleans up; patient completes activity. [place] assists only prior to or following the activity. 4-Supervision or Touching Assistance-helper provides verbal cues and/or to uching/steadying and/or contact guard assistance as patient completes activity. Assistance may be provided throughout the activity or intermittently. 3-Partial/Moderate Assistance-helper does LESS THAN HALF the effort. [place] lifts, holds or supports trunk or limbs, but provides less than half the effort. 2-Substantial/Maximal Assistance-helper does MORE THAN HALF the effort. [place] lifts or holds trunk or limbs and provides more than half the effort. 7-Enpeiupld-ccehft does ALL the effort. Patient does none of the effort to complete the activity. Or, the assistance of 2 or more helpers is required for the patient to complete the activity. If activity was not attempted, code reason: 7-Patient Refused. 9-Not Applicable-not attempted and the patient did not perform the activity before the current illness, exacerbation or injury. 10-Not Attempted due to Environmental Limitations-(lack of equipment, weather restraints, etc.). 88-Not Attempted due to Medical Conditions or Safety Concerns. Exercises Supine Ex: Ankle pumps, Quad Set, Glut sets, Heel Slides, Straight leg raise, Hip abd/add Supine Reps: 15 Treatments Completes Supine Ex to show JAVA TECH LEAD, reports feeling comfortable with transfers and able to take self to BR. All needs met, call light in hand. Assessment Current Status: Good Progress Pt mohini. tx well. Pt advises will be moving to room on Med/Surg. Floor since improving. PT Crime Scene Analyst Goals Crime Scene Analyst Goals PT [facility] Goals Time Frame: Jan 27, 2020 Roll Left & Right (QC): 6 Sit to Lying (QC): 6 Lying-Sitting on Side/Bed(QC): 6 Sit to Stand (QC): 6 Chair/Wio-nm-Ijsyp Xfer(QC): 6 Toilet Transfer (QC): 6 Does the Patient Walk: Yes Walk 10 feet (QC): 6 Walk 50ft with 2 Turns (QC): 6 Walk 150 ft (QC): 6 PT Plan Problem List Problem List: Activity Tolerance Treatment/Plan Treatment Plan: Continue Plan of Care Treatment Plan: Education, Functional Activity Reggie, Functional Strength, Gait, Safety, Therapeutic Exercise (HEP), Transfers Treatment Duration: Jan 27, 2020 Frequency: 4 times per week Estimated Hrs Per Day: .25 hour per day Patient and/or Family Agrees t: Yes Safety Risks/Education Patient Education: Safety Issues Teaching Recipient: Patient Teaching Methods: Discussion Response to Teaching: Verbalize Understanding Time/GCodes Time In: 1135 Time Out: 1155 Total Billed Treatment Time: 20 Total Billed Treatment 1, HECTOR (20m) JASEN TINAJERO JAVA TECH LEAD Jan 25, 2020 14:43
[2020-01-25] MEDS: RIVAROXABAN 20 MG TABLET (XARELTO) PO SCH (17:10)
--- NOTE | 2020-01-25 18:15 | NUR ---
Report given to REJI Nickerson. Patient taken to room 422 via bed. Precautions maintained during transfer. No acute changes. No new complaints. Vitals have remained stable during this shift.
[2020-01-26 00:48] VITALS: BP 109/63
[2020-01-26] MEDS ORDERED: WATER (STERILE) FOR INJECTION 10 ML ONE (03:27)
[2020-01-26] MEDS ORDERED: CEFEPIME 1 GM (MAXIPIME) VIAL ONE (03:27)
[2020-01-26 03:37] VITALS: BP 103/59
[2020-01-26] MEDS: CEFEPIME 1,000 MG/SWFI 10 ML IV PUSH IV SCH ×8 (03:40→20:34)
[2020-01-26 07:05] LABS: BASOPHILS % (AUTO) 0 % (0-10); EOSINOPHILS % (AUTO) 0 % (0-10); HEMATOCRIT 28 % (40-54); HEMOGLOBIN 9.3 g/dL (13.3-17.7); LYMPHOCYTES # (AUTO) 1.7 10^3/uL (1.0-4.0); LYMPHOCYTES % (AUTO) 14 % (12-44); MEAN CORPUSCULAR HEMOGLOBIN 29 pg (25-34); MEAN CORPUSCULAR HGB CONC 33 g/dL (32-36); MEAN CORPUSCULAR VOLUME 89 fL (80-99); MEAN PLATELET VOLUME 10.2 fL (9.0-12.2); MONOCYTES # (AUTO) 1.2 10^3/uL (0.0-1.0); MONOCYTES % (AUTO) 10 % (0-12); NEUTROPHILS % (AUTO) 75 % (42-75); PLATELET COUNT 374 10^3/uL (130-400)
[2020-01-26] MEDS: RT-ALBUTEROL INHALER HFA (VENTOLIN HFA) 18 GM IH SCH ×4 (07:06→19:51)
[2020-01-26 07:30] LABS: CALCIUM 8.9 MG/DL (8.5-10.1); CREATININE SERUM 1.29 MG/DL (0.60-1.30); PHOSPHORUS 3.5 MG/DL (2.3-4.7); POTASSIUM 4.9 MMOL/L (3.6-5.0)
[2020-01-26 08:00] VITALS: BP 94/52
[2020-01-26] MEDS: VITAMIN D3 125 MCG (5,000 UNITS) CAPSULE PO SCH (09:33)
[2020-01-26] MEDS: PANTOPRAZOLE 40 MG (PROTONIX) TAB PO SCH (09:33)
[2020-01-26] MEDS: ASPIRIN 81 MG CHEW (CHILDREN'S ASA) PO SCH (09:33)
[2020-01-26] MEDS: CLOPIDOGREL 75 MG (PLAVIX) TABLET PO SCH (09:33)
--- NOTE | 2020-01-26 09:41 | Progress Note - Hospitalist ---
Subjective HPI/CC On Admission Date Seen by Provider: Jan 26, 2020 Time Seen by Provider: 09:25 patient is a 59-year-old male past medical history of hypertension hyperlipidemia who presented to the emergency department due to shortness of breath. He states he was exposed to COVID at work and subsequently was tested but was asymptomatic. He was found to be positive for COVID on . Roughly one week later he developed symptoms on 01/10. he was quite hypoxic and required a nonrebreather to maintain oxygen saturations. He is been admitted to the ICU. This morning he states that he is feeling better. He did have some nausea overnight but denies any vomiting, loss of taste or smell, or diarrhea. Subjective/Events-last exam He reports feeling better today. He wants more to eat. He says his room is cold. He denies fevers. He denies trouble breathing. He is not coughing much. He denies nausea and vomiting. He denies abdominal pain. He denies diarrhea. He is not having chest pain. He has been moving around, but not yet today. Objective Exam Vital Signs Vital Signs Date Time Temp Pulse Resp B/P (MAP) Pulse Ox O2 Delivery O2 Flow Rate FiO2 01/26/20 08:00 36.2 72 18 94/52 (66) 92 High Flow N/C 10.00 01/25/20 14:15 50 Capillary Refill : Less Than 3 SecondsLess Than 3 Seconds General Appearance: No Apparent Distress, WD/WN Respiratory: Lungs Clear, Normal Breath Sounds, No Respiratory Distress Cardiovascular: Regular Rate, Rhythm, No Edema, No Murmur Gastrointestinal: Normal Bowel Sounds, Non Tender, Soft Extremity: Normal Inspection, Non Tender, No Pedal Edema Neurologic/Psychiatric: Alert, Oriented x3, No Motor/Sensory Deficits, Normal Mood/Affect Skin: Normal Color, Warm/Dry Results/Procedures Lab Laboratory Tests 01/26/20 06:55 Patient resulted labs reviewed. Imaging: Reviewed Imaging Report Assessment/Plan Assessment and Plan Assess & Plan/Chief Complaint Acute respiratory failure due to COVID-19 PNA Continue supplemental oxygen, requirements improving, 6 L upon my examination BiPAP at night Diagnosed 01/04 - 14 days from positive test to admission Outside window for Remdesivir s/p 2 units convalescent plasma Continue Decadron Continue Cefepime and Azithromycin STEMI Cardiology following, appreciate assistance s/p left heart cath and stent placement Continue ASA, Plavix, statin BP unable to tolerate beta-negin and ACEi DEISY Uses CPAP with 2 liters of oxygen at home History of DVT Xarelto History of multiple myeloma Currently in remission on no treatment DVT/GI prophylaxis: already receiving therapeutic anticoagulation/PPI Hyperkalemia, resolved Critical Care Critically Ill Patient Diagnosis/Problems Diagnosis/Problems (1) Acute respiratory failure due to COVID-19 Status: Acute (2) Pneumonia due to COVID-19 virus Status: Acute (3) STEMI (ST elevation myocardial infarction) Status: Acute (4) DEISY on CPAP Status: Chronic (5) Hyperkalemia Status: Resolved Resolution Date/Time: 01/26/20 @ 09:43 (6) History of DVT (deep vein thrombosis) Status: Chronic (7) Multiple myeloma in remission Status: Chronic Clinical Quality Measures DVT/VTE Risk/Contraindication: Risk Factor Score Per Nursin RFS Level Per Nursing on Admit: 4+=Very High ARMEN QUIÑONES MD Jan 26, 2020 09:41
--- NOTE | 2020-01-26 10:28 | Progress Note - Cardiology ---
Cardiology SOAP Progress Note Subjective: No chest pain or palp or syncope Feels well No focal weakness Objective: I&O/Vital Signs 01/26/20 01/26/20 01/26/20 01/26/20 00:48 01:00 03:37 07:06 Temp 36.6 36.4 Pulse 71 80 66 Resp 16 24 B/P (MAP) 109/63 (78) 103/59 (74) Pulse Ox 98 99 97 O2 Delivery High Flow N/C High Flow N/C High Flow N/C O2 Flow Rate 10.00 10.00 10.00 01/26/20 01/26/20 01/26/20 07:07 08:00 09:00 Temp 36.2 Pulse 58 72 Resp 18 B/P (MAP) 94/52 (66) Pulse Ox 92 O2 Delivery High Flow N/C High Flow N/C O2 Flow Rate 10.00 6.00 01/26/20 00:00 Intake Total 720 ml Output Total 1525 ml Balance -805 ml Weight (Pounds): 184 Weight (Calculated Kilograms): 83.061013 Constitutional: AAO x 3, well-developed, well-nourished Respiratory: No accessory muscle use; other (good bilat air entry, diminished at the bases) Cardiovascular: regular rate-rhythm, S1 and S2, systolic murmur (soft TYSON at card base) Gastrointestional: No tender; soft; No guarding; audible bowel sounds Extremities: No clubbing, No cyanosis Neurologic/Psychiatric: oriented x 3, other (moves all limbs equally) Skin: No rash on exposed areas, No ulcerations on exposed areas Results/Procedures: Labs Laboratory Tests 01/26/20 06:55: White Blood Count 12.0H, Red Blood Count 3.16L, Hemoglobin 9.3L, Hematocrit 28L, Mean Corpuscular Volume 89, Mean Corpuscular Hemoglobin 29, Mean Corpuscular Hemoglobin Concent 33, Red Cell Distribution Width 15.2H, Platelet Count 374, Mean Platelet Volume 10.2, Immature Granulocyte % (Auto) 1, Neutrophils (%) (Auto) 75, Lymphocytes (%) (Auto) 14, Monocytes (%) (Auto) 10, Eosinophils (%) (Auto) 0, Basophils (%) (Auto) 0, Neutrophils # (Auto) 9.0H, Lymphocytes # (Auto) 1.7, Monocytes # (Auto) 1.2H, Eosinophils # (Auto) 0.0, Basophils # (Auto) 0.0, Immature Granulocyte # (Auto) 0.1, Sodium Level 134L, Potassium Level 4.9, Chloride Level 100, Carbon Dioxide Level 25, Anion Gap 9, Blood Urea Nitrogen 52H, Creatinine 1.29, Estimat Glomerular Filtration Rate 57, BUN/Creatinine Ratio 40, Glucose Level 125H, Calcium Level 8.9, Phosphorus Level 3.5, Magnesium Level 2.0 Microbiology 01/18/20 MRSA Screen - Final, Complete MRSA not isolated 01/17/20 Blood Culture - Final, Complete No growth Laboratory Tests 01/25/20 03:25 01/26/20 06:55 A/P: Assessment: No recurrence of chest pain Acute ST elevation myocardial, occurred while in the hospital, treated on 01/21/20 with RCA stenting with Liliana 4 x 28 mm stent. Repeat cath of 01/23/20 (for continuing chest pain) shows patent proximal stent in a large, dominant RCA the very distal portion of which appear to have a minimal amount of thrombus. Here the vessel is of extremely small caliber and not amenable to intervention. Left coronary system does not indicate any significant disease. LVEDP 3 mmHg. LVEF approx 45% and hypokinesis of the diaphragmatic wall of the LV R groin hematoma after cath of 01/21/20, stable. 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 Hypertension, by history WATSON-1, probably related to intravascular vol depletion Hyperlipidemia, by history Plan: * Continue treatment with ASA, clopidogrel, and rivaroxaban at this time - discussed rationale (ASA and clopidogrel for ACS treated with MEAGAN on 01/21/20, and rivaroxaban for COVID-19 and h/o DVT and small vessel embolization of clot at time of PCI of RCA). * Continue statin * Relatively low bp does not permit beta-negin at this time * Monitor labs AURE MARTI MD [facility] Jan 26, 2020 10:28
--- NOTE | 2020-01-26 11:13 | Physical Therapy Daily Note ---
PT Daily Note-Current Subjective Patient reports he is up in his room independently. Agrees to PT. Mental Status Patient Orientation: Normal For Age Attachments: Oxygen Transfers SCALE: Activities may be completed with or without assistive devices. 3-Bxwsjrjyay-bdgfsvm completes the activity by him/herself with no assistance from a helper. 5-Set-up or Clean-up Assistance-helper sets up or cleans up; patient completes activity. [place] assists only prior to or following the activity. 4-Supervision or Touching Assistance-helper provides verbal cues and/or touching/steadying and/or contact guard assistance as patient completes activit y. Assistance may be provided throughout the activity or intermittently. 3-Partial/Moderate Assistance-helper does LESS THAN HALF the effort. [place] lifts, holds or supports trunk or limbs, but provides less than half the effort. 2-Substantial/Maximal Assistance-helper does MORE THAN HALF the effort. [place] lifts or holds trunk or limbs and provides more than half the effort. 3-Biifuxsbv-nszayc does ALL the effort. Patient does none of the effort to complete the activity. Or, the assistance of 2 or more helpers is required for the patient to complete the activity. If activity was not attempted, code reason: 7-Patient Refused. 9-Not Applicable-not attempted and the patient did not perform the activity before the current illness, exacerbation or injury. 10-Not Attempted due to Environmental Limitations-(lack of equipment, weather restraints, etc.). 88-Not Attempted due to Medical Conditions or Safety Concerns. Roll Left & Right (QC): 6 Sit to Lying (QC): 6 Lying to Sitting/Side of Bed(Q: 6 Sit to Stand (QC): 6 Gait Training Does the Patient Walk?: Yes Distance: 75' Walk 10 feet (QC): 6 Walk 50 ft with 2 Turns(QC): 6 Gait Assistive Device: None safe and functional with no deviation Exercises Standing: Mini squats Standing Reps: 10 Assessment Current Status: Excellent Progress Patient is currently at independent PLOF with all gross motor skills safely and does not require skilled therapy intervention. PT Dowel Setting Machine Operator Goals Residential Goals PT Dowel Setting Machine Operator Goals Time Frame: Jan 27, 2020 Roll Left & Right (QC): 6 Sit to Lying (QC): 6 Lying-Sitting on Side/Bed(QC): 6 Sit to Stand (QC): 6 Chair/Qib-no-Rnkoq Xfer(QC): 6 Toilet Transfer (QC): 6 Does the Patient Walk: Yes Walk 10 feet (QC): 6 Walk 50ft with 2 Turns (QC): 6 Walk 150 ft (QC): 6 PT Plan Treatment/Plan Treatment Plan: Discontinue PT, goals met Treatment Plan: Education, Functional Activity Reggie, Functional Strength, Gait, Safety, Therapeutic Exercise (HEP), Transfers Treatment Duration: Jan 27, 2020 Frequency: 4 times per week Estimated Hrs Per Day: .25 hour per day Patient and/or Family Agrees t: Yes Time/GCodes Time In: 1013 Time Out: 1022 Total Billed Treatment Time: 9 Total Billed Treatment 1 visit FA 9 min NATALIE RAYA PT Jan 26, 2020 11:13
[2020-01-26 12:00] VITALS: BP 95/54
--- NOTE | 2020-01-26 13:45 | Occupational Ther Daily Note ---
OT Current Status-Daily Note Subjective Pt alert, lying in bed. Pt agrees to therapy though proceeds to demonstrate how he can complete mobility by self without AD and talks about how he completes his ADLs by himself and does not want anyone in the room when he completes these. Mental Status/Objective Patient Orientation: Person, Place, Time, Situation ADL-Treatment PINK and nrsg gather all supplies to take bath, dressing and oral care due to pt's request that no one is in room while he completes these tasks. Pt does demonstrate how he is able to ambulate around the room, completing squats and gathering own clothing (independently). Pt was educated on how to wrap IV site for shower and shown were all supplies were located. Nrsg aware of pt's desire to complete ADLs by self and instructed to use call light if any needs arose. Pt independent with all ADLs and has met goals. Discharge OT services. Therapy Code Descriptions/Definitions Functional [place] Measure: 0=Not Assessed/NA 4=Minimal Assistance 1=Total Assistance 5=Supervision or Setup 2=Maximal Assistance 6=Modified [place] 3=Moderate Assistance 7=Complete IndependenceSCALE: Activities may be completed with or without assistive devices. 5-Ikdmxjbbnp-wyzcyto completes the activity by him/herself with no assistance from a helper. 5-Set-up or Clean-up Assistance-helper sets up or cleans up; patient completes activity. [place] assists only prior to or following the activity. 4-Supervision or Touching Assistance-helper provides verbal cues and/or touching/steadying and/or contact guard assistance as patient completes activity. Assistance may be provided throughout the activity or intermittently. 3-Partial/Moderate Assistance-helper does LESS THAN HALF the effort. [place] lifts, holds or supports trunk or limbs, but provides less than half the effort. 2-Substantial/Maximal Assistance-helper does MORE THAN HALF the effort. [place] lifts or holds trunk or limbs and provides more than half the effort. 6-Zqtxolnno-qxmgiq does ALL the effort. Patient does none of the effort to complete the activity. Or, the assistance of 2 or more helpers is required for the patient to complete the activity. If activity was not attempted, code reason: 7-Patient Refused. 9-Not Applicable-not attempted and the patient did not perform the activity before the current illness, exacerbation or injury. 10-Not Attempted due to Environmental Limitations-(lack of equipment, weather restraints, etc.). 88-Not Attempted due to Medical Conditions or Safety Concerns. OT Short Term Goals Short Term Goals Time Frame: Feb 06, 2020 Toileting hygiene: 4 Shower/bathe self: 3 Upper body dressin Lower body dressin Putting on/taking off footwear: 4 OT Subsurface Augmentee Elint Operator Goals Long-Term Goals Time Frame: Feb 06, 2020 Eating (QC): 6 Oral Hygiene (QC): 6 Toileting Hygiene (QC): 6 Shower/Bathe Self (QC): 6 Upper Body Dressing (QC): 6 Lower Body Dressing (QC): 6 On/Off Footwear (QC): 6 1=Demonstrate adherence to instructed precautions during ADL tasks. 2=Patient will verbalize/demonstrate understanding of assistive devices/modifications for ADL. 3=Patient will improve strength/tolerance for activity to enable patient to perform ADL's. OT Education/Plan Problem List/Assessment Assessment: No Skilled OT Needs ID'd Discharge Recommendations Plan/Recommendations: Discharge/Goals Met Treatment Plan/Plan of Care Patient would benefit from OT for education, treatment and training to promote independence in ADL's, mobility, safety and/or upper extremity function for ADL's. Plan of Care: ADL Retraining, Concurrent Therapy, Functional Mobility, UE Funct Exercise/Act Treatment Duration: Feb 06, 2020 Frequency: 5 times per week Estimated Hrs Per Day: .25 hour per day Agreement: Yes Rehab Potential: Fair Time/GCodes Start Time: 11:05 Stop Time: 11:30 Total Time Billed (hr/min): 25 Billed Treatment Time 1 visit-ADL 2 (25 min) JIM ROD Jan 26, 2020 13:45
[2020-01-26 16:00] VITALS: BP 100/61
[2020-01-26] MEDS: RIVAROXABAN 20 MG TABLET (XARELTO) PO SCH (16:28)
[2020-01-26 19:29] VITALS: BP 105/58
[2020-01-27 00:06] VITALS: BP 103/67
[2020-01-27] MEDS: CEFEPIME 1,000 MG/SWFI 10 ML IV PUSH IV SCH ×4 (03:31→07:59)
[2020-01-27 04:16] VITALS: BP 109/64
[2020-01-27 05:45] LABS: BASOPHILS % (AUTO) 0 % (0-10); EOSINOPHILS % (AUTO) 0 % (0-10); HEMATOCRIT 29 % (40-54); HEMOGLOBIN 9.5 g/dL (13.3-17.7); LYMPHOCYTES # (AUTO) 1.2 10^3/uL (1.0-4.0); LYMPHOCYTES % (AUTO) 11 % (12-44); MEAN CORPUSCULAR HEMOGLOBIN 30 pg (25-34); MEAN CORPUSCULAR HGB CONC 33 g/dL (32-36); MEAN CORPUSCULAR VOLUME 90 fL (80-99); MEAN PLATELET VOLUME 10.1 fL (9.0-12.2); MONOCYTES # (AUTO) 1.1 10^3/uL (0.0-1.0); MONOCYTES % (AUTO) 10 % (0-12); NEUTROPHILS # (AUTO) 8.6 10^3/uL (1.8-7.8); NEUTROPHILS % (AUTO) 78 % (42-75); PLATELET COUNT 357 10^3/uL (130-400); WHITE BLOOD COUNT 11.1 10^3/uL (4.3-11.0)
[2020-01-27 06:01] LABS: POTASSIUM 4.9 MMOL/L (3.6-5.0)
[2020-01-27 06:02] LABS: CALCIUM 8.4 MG/DL (8.5-10.1)
[2020-01-27 06:07] LABS: CREATININE SERUM 1.31 MG/DL (0.60-1.30)
[2020-01-27 06:09] LABS: MAGNESIUM 1.8 MG/DL (1.6-2.4)
[2020-01-27] MEDS ORDERED: dexAMETHasone 6 MG TAB (DECADRON) PO SCH (07:00)
[2020-01-27 07:57] VITALS: BP 105/57
[2020-01-27] MEDS: VITAMIN D3 125 MCG (5,000 UNITS) CAPSULE PO SCH (07:58)
[2020-01-27] MEDS: ASPIRIN 81 MG CHEW (CHILDREN'S ASA) PO SCH (07:58)
[2020-01-27] MEDS: PANTOPRAZOLE 40 MG (PROTONIX) TAB PO SCH (07:58)
[2020-01-27] MEDS: CLOPIDOGREL 75 MG (PLAVIX) TABLET PO SCH (07:58)
[2020-01-27] MEDS ORDERED: ASPI-999 PO (09:17)
[2020-01-27] MEDS ORDERED: ATOR80TA76 PO (09:17)
[2020-01-27] MEDS ORDERED: CLOP75TA28 PO (09:17)
--- NOTE | 2020-01-27 10:00 | NUR ---
CM/SS: Follow up related to discharge plan and setting up oxygen at time of discharge Plan: Pt to return home, with oxygen need. No other services identified. Pt does live with his spouse locally. Summary: Pt reports to the RN that he uses [facility] for his medical equipment and oxygen. This worker will fax over information on the oxygen, once oxygen study is completed.
--- NOTE | 2020-01-27 10:06 | Discharge Summary ---
Discharge Summary Hospital Course Was the Problem List Reviewed?: Yes Problems/Dx: (1) Acute respiratory failure due to COVID-19 Status: Acute (2) Pneumonia due to COVID-19 virus Status: Acute (3) STEMI (ST elevation myocardial infarction) Status: Acute Qualifiers: Qualified Codes: I21.11 - ST elevation (STEMI) myocardial infarction involving right coronary artery (4) DEISY on CPAP Status: Chronic (5) Hyperkalemia Status: Resolved (6) History of DVT (deep vein thrombosis) Status: Chronic (7) Multiple myeloma in remission Status: Chronic Hospital Course Date of Admission: Jan 18, 2020 at 00:05 Admission Diagnosis : Acute respiratory failure due to COVID-19 Family Physician/Provider: AkankshaLocal Physician Date of Discharge: 01/27/20 Discharge Diagnosis: Acute respiratory failure due to COVID-19, STEMI Hospital Course: Rogelio Dhillon is a 59-year-old male who was admitted with acute respiratory failure due to COVID-19. He was treated with IV Decadron. He was outside of the window for treatment with Remdesivir. He was given 2 units of convalescent plasma. He did require some oxygen supplementation during his hospital stay which improved. At the time of discharge, an RT home oxygen study revealed a requirement of 2-8 L. His course was complicated by an ST elevation ND. He underwent a left heart catheterization which revealed a blockage of the right coronary artery and a coronary stent was placed. He was started on aspirin and Plavix. His statin was increased to high intensity dosing. He was not able to tolerate a beta negin due to low blood pressure. He was continued on a low- dose TARA inhibitor. He should follow-up with cardiology in 1 month. He should follow-up with his primary care physician in one to two weeks. He was discharged home in stable condition. Labs and Pending Lab Test: Laboratory Tests 01/27/20 05:23: White Blood Count 11.1H, Red Blood Count 3.22L, Hemoglobin 9.5L, Hematocrit 29L, Mean Corpuscular Volume 90, Mean Corpuscular Hemoglobin 30, Mean Corpuscular Hemoglobin Concent 33, Red Cell Distribution Width 15.4H, Platelet Count 357, Mean Platelet Volume 10.1, Immature Granulocyte % (Auto) 1, Neutrophils (%) (Auto) 78H, Lymphocytes (%) (Auto) 11L, Monocytes (%) (Auto) 10, Eosinophils (%) (Auto) 0, Basophils (%) (Auto) 0, Neutrophils # (Auto) 8.6H, Lymphocytes # (Au to) 1.2, Monocytes # (Auto) 1.1H, Eosinophils # (Auto) 0.0, Basophils # (Auto) 0.0, Immature Granulocyte # (Auto) 0.1, Sodium Level 137, Potassium Level 4.9, Chloride Level 105, Carbon Dioxide Level 21, Anion Gap 11, Blood Urea Nitrogen 51H, Creatinine 1.31H, Estimat Glomerular Filtration Rate 56, BUN/Creatinine Ratio 39, Glucose Level 163H, Calcium Level 8.4L, Phosphorus Level 3.0, Magnesium Level 1.8 Microbiology 01/18/20 MRSA Screen - Final, Complete MRSA not isolated 01/17/20 Blood Culture - Final, Complete No growth Home Meds Active Clopidogrel (Clopidogrel Bisulfate) 75 Mg Tablet 75 Mg PO DAILY 90 Days Aspirin 81 Mg Tab.chew 81 Mg PO DAILY 30 Days Atorvastatin Calcium 80 Mg Tablet 80 Mg PO HS 90 Days Reported Vitamin D3 (Cholecalciferol (Vitamin D3)) 125 Mcg Tablet 125 Mcg PO DAILY Xarelto Tablet (Rivaroxaban) 20 Mg Tablet 20 Mg PO DAILY Pantoprazole Sodium 40 Mg Tablet.dr 40 Mg PO DAILY Atorvastatin Calcium 20 Mg Tablet 20 Mg PO DAILY Ramipril 2.5 Mg Capsule 2.5 Mg PO DAILY Assessment/Pt Instructions Take medications as prescribed. Follow-up with your primary care physician. Follow up with cardiology. Return with worsening shortness of breath, chest pain, or if you feel like you're getting worse. Discharge Planning: <30 minutes discharge planning Discharge Instructions Discharge Diet: Low Sodium Diet Activity as Tolerated: Yes Discharge Physical Examination Vital Signs Vital Signs Date Time Temp Pulse Resp B/P (MAP) Pulse Ox O2 Delivery O2 Flow Rate FiO2 01/27/20 08:00 94 High Flow N/C 4.00 01/27/20 07:57 36.6 77 20 105/57 (73) 01/25/20 14:15 50 General Appearance: No Apparent Distress, WD/WN Respiratory: Lungs Clear, Normal Breath Sounds, No Respiratory Distress Cardiovascular: Regular Rate, Rhythm, No Edema, No Murmur Gastrointestinal: Normal Bowel Sounds, Non Tender, Soft Skin: Normal Color, Warm/Dry Neurologic/Psychiatric: Alert, Oriented x3, No Motor/Sensory Deficits, Normal Mood/Affect Allergies: Coded Allergies: No Known Drug Allergies (Unverified , 01/21/16) Discharge Summary Date of Admission Jan 18, 2020 at 00:05 Date of Discharge Discharge Date: Jan 27, 2020 Discharge Time: 10:06 Admission Diagnosis Acute respiratory failure due to COVID-19 Consults/Procedures Consulations Cardiology Discharge Diagnosis Acute respiratory failure due to COVID-19, STEMI (1) Acute respiratory failure due to COVID-19 Status: Acute (2) Pneumonia due to COVID-19 virus Status: Acute (3) STEMI (ST elevation myocardial infarction) Status: Acute Qualifiers: Qualified Codes: I21.11 - ST elevation (STEMI) myocardial infarction involving right coronary artery (4) DEISY on CPAP Status: Chronic (5) Hyperkalemia Status: Resolved (6) History of DVT (deep vein thrombosis) Status: Chronic (7) Multiple myeloma in remission Status: Chronic Clinical Quality Measures DVT/VTE Risk/Contraindication: Risk Factor Score Per Nursin RFS Level Per Nursing on Admit: 4+=Very High ARMEN QUIÑONES MD Jan 27, 2020 10:05
--- NOTE | 2020-01-27 11:00 | NUR ---
PATIENT WAS ON OXYGEN AT 4 L/M SAT WAS 89% PATIENT PLACED ON ROOM AIR SAT DROPPED TO 83% AFTER 5 MIN PATIENT PLACED BACK ON 5 L/M AND AFTER 7 MIN. SAT RETURNED TO 90% RECOMMEND 2-8 L/M OXYGEN Addendum: 01/27/20 at 1101 by DORI CRANDALL RT Amended: Links added.
--- NOTE | 2020-01-27 12:49 | Progress Note - Cardiology ---
Cardiology SOAP Progress Note Subjective: Sitting up in bed. States he feels great! No c/o CP, palpitations, dyspnea. Objective: I&O/Vital Signs 01/27/20 01/27/20 01/27/20 01/27/20 04:16 07:00 07:57 08:00 Temp 36.6 36.6 Pulse 71 69 77 Resp 20 20 B/P (MAP) 109/64 (79) 105/57 (73) Pulse Ox 94 93 94 O2 Delivery High Flow N/C High Flow N/C High Flow N/C O2 Flow Rate 4.00 4.00 4.00 01/27/20 01/27/20 10:57 12:34 Pulse 70 Pulse Ox 4 83 O2 Flow Rate 89.00 01/27/20 00:00 Intake Total 910 ml Output Total 1150 ml Balance -240 ml Weight (Pounds): 184 Weight (Calculated Kilograms): 83.524288 Constitutional: AAO x 3, well-developed, well-nourished Respiratory: No accessory muscle use; other (good bilat air entry, diminished at the bases) Cardiovascular: regular rate-rhythm, S1 and S2, systolic murmur (soft TYSON at card base) Gastrointestional: No tender; soft; No guarding; audible bowel sounds Extremities: No clubbing, No cyanosis Neurologic/Psychiatric: oriented x 3, other (moves all limbs equally) Skin: No rash on exposed areas, No ulcerations on exposed areas Results/Procedures: Labs Laboratory Tests 01/27/20 05:23: White Blood Count 11.1H, Red Blood Count 3.22L, Hemoglobin 9.5L, Hematocrit 29L, Mean Corpuscular Volume 90, Mean Corpuscular Hemoglobin 30, Mean Corpuscular Hemoglobin Concent 33, Red Cell Distribution Width 15.4H, Platelet Count 357, Mean Platelet Volume 10.1, Immature Granulocyte % (Auto) 1, Neutrophils (%) (Auto) 78H, Lymphocytes (%) (Auto) 11L, Monocytes (%) (Auto) 10, Eosinophils (%) (Auto) 0, Basophils (%) (Auto) 0, Neutrophils # (Auto) 8.6H, Lymphocytes # (Auto) 1.2, Monocytes # (Auto) 1.1H, Eosinophils # (Auto) 0.0, Basophils # (Auto) 0.0, Immature Granulocyte # (Auto) 0.1, Sodium Level 137, Potassium Level 4.9, Chloride Level 105, Carbon Dioxide Level 21, Anion Gap 11, Blood Urea Nitrogen 51H, Creatinine 1.31H, Estimat Glomerular Filtration Rate 56, BUN/Creatinine Ratio 39, Glucose Level 163H, Calcium Level 8.4L, Phosphorus Level 3.0, Magnesium Level 1.8 Microbiology 01/18/20 MRSA Screen - Final, Complete MRSA not isolated 01/17/20 Blood Culture - Final, Complete No growth A/P: Assessment: No recurrence of chest pain Acute ST elevation myocardial, occurred while in the hospital, treated on 01/21/20 with RCA stenting with Liliana 4 x 28 mm stent. Repeat cath of 01/23/20 (for continuing chest pain) shows patent proximal stent in a large, dominant RCA the very distal portion of which appear to have a minimal amount of thrombus. Here the vessel is of extremely small caliber and not amenable to intervention. Left coronary system does not indicate any significant disease. LVEDP 3 mmHg. LVEF approx 45% and hypokinesis of the diaphragmatic wall of the LV R groin hematoma after cath of 01/21/20, stable. 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 Hypertension, by history WATSON-1, probably related to intravascular vol depletion Hyperlipidemia, by history Plan: * Continue treatment with ASA, clopidogrel, and rivaroxaban at this time - discussed rationale (ASA and clopidogrel for ACS treated with MEAGAN on 01/21/20, and rivaroxaban for COVID-19 and h/o DVT and small vessel embolization of clot at time of PCI of RCA). * Answered several questions regarding CAD and treatment undertaken * Continue statin * Relatively low bp does not permit beta-negin at this time * Monitor labs JADA ROBERTO Jan 27, 2020 12:49
[2020-01-27] MEDS: RT-ALBUTEROL INHALER HFA (VENTOLIN HFA) 18 GM IH SCH (14:13)
== END 2020-01-27 15:52 | disposition home or self-care (01) | DRG 981 ==
LOC: EDUNIT# 22:08 → ER 22:09 → ICU 01-18 00:05 → CSD 01-24 19:30 → 4TH 01-25 18:01
PROVIDERS: ADMIT Internal Medicine; ATTEND Internal Medicine
PROC: XW13325 Transfusion of Convalescent Plasma (Nonautologous) into Peripheral Vein, Percutaneous Approach, New Technology Group 5 (ICD-10-PCS; principal; 2020-01-19)
PROC: 027034Z Dilation of Coronary Artery, One Artery with Drug-eluting Intraluminal Device, Percutaneous Approach (ICD-10-PCS; 2020-01-21)
PROC: 02C03ZZ Extirpation of Matter from Coronary Artery, One Artery, Percutaneous Approach (ICD-10-PCS; 2020-01-21)
PROC: 4A023N7 Measurement of Cardiac Sampling and Pressure, Left Heart, Percutaneous Approach (ICD-10-PCS; 2020-01-21)
PROC: B2111ZZ Fluoroscopy of Multiple Coronary Arteries using Low Osmolar Contrast (ICD-10-PCS; 2020-01-21)
PROC: B2151ZZ Fluoroscopy of Left Heart using Low Osmolar Contrast (ICD-10-PCS; 2020-01-21)
PROC: 4A023N7 Measurement of Cardiac Sampling and Pressure, Left Heart, Percutaneous Approach (ICD-10-PCS; 2020-01-23)
PROC: B2111ZZ Fluoroscopy of Multiple Coronary Arteries using Low Osmolar Contrast (ICD-10-PCS; 2020-01-23)
PROC: B2151ZZ Fluoroscopy of Left Heart using Low Osmolar Contrast (ICD-10-PCS; 2020-01-23)
DX: U07.1 COVID-19 (principal); J12.89 Other viral pneumonia; J96.01 Acute respiratory failure with hypoxia; I21.3 ST elevation (STEMI) myocardial infarction of unspecified site; E87.2 Acidosis; Z94.81 Bone marrow transplant status; C90.01 Multiple myeloma in remission; I10 Essential (primary) hypertension; E78.00 Pure hypercholesterolemia, unspecified; E78.5 Hyperlipidemia, unspecified; I25.2 Old myocardial infarction; I25.10 Atherosclerotic heart disease of native coronary artery without angina pectoris; E86.0 Dehydration; I48.0 Paroxysmal atrial fibrillation; E87.5 Hyperkalemia; N28.9 Disorder of kidney and ureter, unspecified; G47.33 Obstructive sleep apnea (adult) (pediatric); E89.3 Postprocedural hypopituitarism; K21.9 Gastro-esophageal reflux disease without esophagitis; K44.9 Diaphragmatic hernia without obstruction or gangrene; Z95.828 Presence of other vascular implants and grafts; Z99.81 Dependence on supplemental oxygen; Z79.01 Long term (current) use of anticoagulants; Z86.718 Personal history of other venous thrombosis and embolism
CPT/HCPCS: 36415; 71045; 71275; 80048; 80053; 81000; 82550; 82553; 82728; 82805; 83605; 83735; 83874; 83880; 84100; 84145; 84484; 85007; 85025; 85027; 85379; 85610; 85652; 85730; 86141; 86900; 86901; 87040; 87081; 87449; 87804; 87899; 90686; 93005; 93041; 93458; 94640; 94660; 94760; 94761; 96361; 96365; 96372; 96375

== ENCOUNTER 2021-01-22 09:30 | Outpatient (RCR) | payer BC ==
[~2021-01-22 09:30] MED LIST changes: +ATOR80TA76 PO; +CALC-250 PO; +CLOP75TA28 PO; -RAMI2.5C2 PO; +RAMI2.5C54 PO; +RIVA20TA2 PO
== END 2021-02-03 | disposition home or self-care (01) ==
PROVIDERS: ATTEND Internal Medicine
DX: M47.816 Spondylosis without myelopathy or radiculopathy, lumbar region (principal); I25.2 Old myocardial infarction; Z86.16 Personal history of COVID-19; Z98.1 Arthrodesis status

== ENCOUNTER → 2021-09-10 | Outpatient (RCR) | payer BC | END | disposition home or self-care (01) | PROVIDERS: ATTEND Neurological Surgery | DX: M50.122 Cervical disc disorder at C5-C6 level with radiculopathy (principal); I10 Essential (primary) hypertension; Z98.1 Arthrodesis status ==

== ENCOUNTER 2021-10-01 08:30 | Outpatient (RCR) | payer BC | END 2021-10-10 | disposition home or self-care (01) | PROVIDERS: ATTEND Neurological Surgery | DX: M50.122 Cervical disc disorder at C5-C6 level with radiculopathy (principal); I10 Essential (primary) hypertension; Z98.1 Arthrodesis status ==

== ENCOUNTER → 2021-11-11 | Outpatient (CLI) | payer BC ==
[~2021-11-11] MED LIST changes: +CATHETER FLUSH 10 ML SYR IVP PRN
[2021-11-11 09:04] VITALS: BP 120/72
--- NOTE | 2021-11-11 11:29 | Cardiology Stress Test Report ---
Stress Test Report Date of Procedure/Referring: Date of Procedure: Nov 11, 2021 PCP Cristian Brown MD Admitting Physician Admitting Physician: Attending Physician: Olivia Schultz Indications: CAD Baseline Heart Rate: 67 Baseline Blood Pressure: Blood Pressure Systolic: 120 Blood Pressure Diastolic: 72 Vital Signs Date Time Temp Pulse Resp B/P (MAP) Pulse Ox O2 Delivery O2 Flow Rate FiO2 11/11/21 09:04 67 16 120/72 (88) 98 Room Air Baseline Vital Signs Vital Signs Date Time Temp Pulse Resp B/P (MAP) Pulse Ox O2 Delivery O2 Flow Rate FiO2 11/11/21 09:04 67 16 120/72 (88) 98 Room Air Baseline EKG: Baseline EKG: NSR Summary: After explaining the procedure and details to the patient, he signed the consent and was brought to the stress nuclear laboratory. Patient exercised on standard Ramana protocol, EKG, heart rate and blood pressure were monitored continuously, resting and stress doses of radio tracer were injected, imaging was acquired and reviewed in the short axis, horizontal long axis and vertical long axis views Patient was able to exercise for a total of 4 minutes on Ramana protocol, METs 5.8 Maximum heart rate 143 Maximum blood pressure 191/81 Stress EKG, Minimal nondiagnostic changes Recovery EKG, Return to baseline TID: 0.89 SSS: 4 SDS: 0 EF: 59 Conclusion: 1. Good exercise tolerance for a total of 4 minutes on standard Ramana protocol, 5.8 METS achieving 89% of maximal expected heart rate 2. Appropriate heart rate with hypertensive response to exercise with peak blood pressure 191/81 return to baseline during recovery 3. Minimal nondiagnostic EKG changes with exercise return to baseline during recovery 4. Diaphragmatic attenuation with fixed defect involving the basal to mid inferior wall. Typical male pattern. No significant ischemia or infarction on SPECT images 5. Normal left ventricular size, normal contractility, ejection fraction 59% Copy Copies To 1: [facility]/VLADIMIR ROMANO MD Nov 11, 2021 11:29
== END ==
LOC: CARD 07:45
PROVIDERS: ATTEND Physician Assistant
DX: I25.10 Atherosclerotic heart disease of native coronary artery without angina pectoris (principal)
CPT/HCPCS: 78452; 93017; A9502